=== PATIENT | male | born 1930 | race Caucasian/White ===

== ENCOUNTER 2016-08-22 13:27 | Inpatient (IN) | payer MEDICARE ==
[~2016-08-22] VITALS: Ht 182.9 cm; Wt 80.3 kg
[~2016-08-22 13:27] MED LIST: ALPR.25 PO
[2016-08-29] MEDS ORDERED: NORC5TAB PO (15:55)
[2016-09-03] MEDS ORDERED: RANI150C PO (11:49)
[2016-09-03] MEDS ORDERED: CYAN5SUB SL (11:49)
[2016-09-03] MEDS ORDERED: SODI1SOL8 RIGHT EYE (11:49)
[2016-09-03] MEDS ORDERED: TAMS5CAP PO (11:49)
[2016-09-03] MEDS ORDERED: HYDR-3516 PO ×2 (11:49)
[2016-09-03] MEDS ORDERED: NACL5%O RIGHT EYE (11:49)
[2016-09-03] MEDS ORDERED: METF500T PO (11:49)
[2016-09-03] MEDS ORDERED: ATOR10TA15 PO (11:49)
[2016-09-03] MEDS ORDERED: VITA100064 PO (11:49)
[2016-09-03] MEDS ORDERED: FOLI400T PO (11:49)
--- NOTE | 2016-09-03 17:39 | MH ---
cc: BERNABE LOVELACE M.D., ROHIT K. M.D. GRIMES, JEREMY R. MD REES, RYAN R. M.D. DATE OF ADMISSION 09/04/2016 ADMISSION DIAGNOSIS Lumbar degenerative disk disease and lumbar spinal stenosis. HISTORY OF PRESENT ILLNESS This is an 86-year-old male who presented to us for evaluation of low back pain. He states his pain started over a year ago after his right knee surgery. The pain radiates from the lower back down his right leg into the gonzalez [id number] with associated numbness and he is experiencing weakness in the right leg. He ambulates with a walker. He states his pain is 5/10. He has tried physical therapy at [facility] but discontinued this due to the increase in pain. His states he is very debilitated with his pain and his right leg weakness and it is wearing down on him. He has been falling a lot. He was seen by cardiology and he was cleared at an increased risk for surgery and he was instructed not to hold his aspirin. PAST MEDICAL HISTORY Significant for: 1. Coronary artery disease with a history of single bypass in 2001. 2. Bilateral arthroscopy on his knees by Dr. Llamas. 3. He has a history of diabetes mellitus. 4. Gastroesophageal reflux disease. 5. Benign prostatic hypertrophy. 6. Hypertension. 7. Hyperlipidemia. ALLERGIES HE HAS NO KNOWN DRUG ALLERGIES. MEDICATIONS He is on: 1. Metformin 500 mg four times a day. 2. Flomax 0.4 mg daily. 3. Aspirin 81 mg daily. 4. Ranitidine 150 mg b.i.d. 5. Atenolol 50 mg 1/2 tablet daily. 6. Alprazolam 0.25 mg p.r.n. anxiety. 7. Atorvastatin 10 mg daily. 8. Travatan 0.68658 one drop daily. 9. Vitamin D 500 mg daily. 10. Folic acid 40 mg daily. FAMILY HISTORY His mother is at 82 years old of heart disease. His father is at 56 years old of heart disease. A sister is at 100 years old with heart disease. Another sister is at 89 years old of heart disease. Brother who is at 84 years old of heart disease. SOCIAL HISTORY He is . He has three children. He does not smoke. He has not smoked in the past. REVIEW OF SYSTEMS CONSTITUTIONAL: He denies any fever or chills. EARS, NOSE, AND THROAT: No pharyngitis, exudate or bloody drainage from his nose. CARDIOVASCULAR: He denies any chest pain, palpitations. RESPIRATORY: No cough or shortness of breath. GENITOURINARY: No dysuria. Positive for urinary frequency. MUSCULOSKELETAL: Positive for low back pain and weakness in his legs. SKIN: No rashes or pruritus. NEUROLOGICAL: No difficulty with speech or memory. GASTROINTESTINAL: No nausea. No diarrhea or constipation. PSYCHIATRIC: No anxiety or depression symptoms. ENDOCRINE: No polyuria or polydipsia. HEMATOLOGIC: Positive for bruising tendencies but no bleeding tendencies. PHYSICAL EXAMINATION HEAD: Normocephalic, atraumatic. NECK: Supple. No carotid bruits heard on auscultation. LUNGS: Clear to auscultation bilaterally. HEART: Regular rate and rhythm. Normal S1-S2. ABDOMEN: Soft and nontender. Positive bowel sounds. SKIN: Reveals no cyanosis or erythema. MUSCULOSKELETAL: He has right iliopsoas and quadriceps weakness at 2/5. Dorsiflexion and plantar flexion weakness is 4-/5. Strength in his left leg is 4+/5. Strength in his upper extremities is 5/5. NEUROLOGICAL: Awake and alert, oriented. Cranial nerves II through XII appear grossly intact. Speech is fluent. Comprehension is good. He has decreased sensation in the right L3 and L4 dermatomes and to a lesser extent the S1 dermatome. IMAGING Data reviewed, reviewed an MRI of the lumbar spine from July 04, 2016 which revealed severe L3-L4 degenerative disc disease with near complete disc height collapse and endplate changes. There is also severe spinal stenosis of the L3-L4 and L4-L5 level from a combination of disc herniation as well as facet arthropathy. He has an extruded disc fragment herniated from the L3-L4 superiorly and inferiorly on the right side. IMPRESSION An 86-year-old male with a chronic history of low back pain along with a right L3 and L4 radiculopathy with associated significant weakness. Physical therapy aggravated his symptoms rather than helped his pain. He has severe L3-L4, L4-L5 spinal stenosis from disk herniation on the right side as well as facet and ligamentum flavum hypertrophy along with severe L3-L4 degenerative disk disease with disk height collapse and endplate changes. There is also bilateral facet arthropathy. PLAN Given the severity of symptoms as well as weakness in his right leg, we have recommended an L3-L4, L4-L5 decompressive laminectomy with microdiskectomy and a L3-L4 right transforaminal decompression with interbody fusion pedicle screw fixation. The procedure as well as the risks, benefits, alternatives and recovery time were explained in great detail with the patient. We have discussed the risks involved with surgery include but not limited to bleeding, infection, muscle weakness, voice hoarseness, difficulty swallowing, heart attack, stroke, blood clots, non fusion, scar tissue formation, among others. We have explained the procedure using spine models in the office and all of his questions were answered to his satisfaction. No guarantees were given to the results of surgery and it is possible that his pain may not improve or could even be worse after surgery. The patient states that he understands the procedure as well as the risks involved and he was therefore scheduled accordingly. Again we have also received cardiac clearance at an increased risk by his software quality manager Dr. Bernabe Lovelace MD. The patient is willing to accept the risks and he is therefore scheduled accordingly. DICTATED BY: Benjamin Sandoval PA-C MD SHIV Hogan/JUDE /3:17 PM /5:15 PM
[2016-09-04 05:40] VITALS: BP 138/63; PULSE 58; RESP 18; TEMP 98.8; O2SAT 98
[2016-09-04] MEDS ORDERED: SODIUM CHLORID 0.9% 500 ML IV SCH (06:15)
[2016-09-04] MEDS ORDERED: METOPROLOL TARTRATE 25 MG TAB PO PRN (06:15)
[2016-09-04] MEDS ORDERED: SODIUM CHLOR 0.9% 1000 ML INJ 1,000 ML IV SCH (06:15)
[2016-09-04] MEDS ORDERED: VANCOMYCIN HCL 1000 MG ON-CALL/NS 250 ML IV SCH ×2 (06:15)
[2016-09-04] MEDS ORDERED: INSULIN HUMAN REGULAR 1,000 UNITS/10 ML VIAL SQ PRN (06:15)
[2016-09-04] MEDS ORDERED: LACTATED RINGER'S 1000 ML IV SCH (06:15)
[2016-09-04] MEDS ORDERED: THROMBIN (TOPICAL) 5,000 UNIT VIAL ONE (06:56)
[2016-09-04] MEDS ORDERED: GELFOAM SIZE 100 ONE (06:57)
[2016-09-04] MEDS ORDERED: ACETAMINOPHEN 1000 MG/100 ML VIAL IV ONE (07:45)
[2016-09-04] MEDS ORDERED: KETAMINE HCL 500 MG/5 ML VIAL ONE (07:46)
[2016-09-04] MEDS ORDERED: DEXAMETHASONE SOD PHOS 4 MG/ML VIAL ONE ×2 (07:46→08:00)
[2016-09-04] MEDS ORDERED: fentaNYL CITRATE 250 MCG/5 ML AMP ONE (07:46)
[2016-09-04] MEDS ORDERED: MIDAZOLAM HCL 2 MG/2 ML VIAL ONE (07:46)
[2016-09-04] MEDS ORDERED: FAMOTIDINE 20 MG/2 ML VIAL ONE (07:46)
[2016-09-04] MEDS ORDERED: PHENYLEPH/NS 1000 MCG/10 ML SYR IV ONE (08:54)
[2016-09-04] MEDS ORDERED: ePHEDrine/NS 50 MG/5 ML SYR IV ONE (08:54)
[2016-09-04] MEDS ORDERED: ONDANSETRON HCL 4 MG/2 ML VIAL IV PUSH ONE (08:54)
[2016-09-04] MEDS ORDERED: LACTATED RINGER'S 1000 ML INJ 1,000 ML IV ONE (08:54)
[2016-09-04] MEDS ORDERED: PROPOFOL 200 MG/20 ML AMP IV ONE (08:54)
[2016-09-04] MEDS ORDERED: NEOSTIGMINE 3 MG/3 ML SYR IV ONE (08:54)
[2016-09-04] MEDS: BUPIVACAINE/EPINEPHRINE 0.5% 50 ML VIAL ONE ×2 (09:29→12:32)
[2016-09-04] MEDS: VANCOMYCIN HCL 1000 MG VIAL ONE ×2 (10:10→12:47)
--- NOTE | 2016-09-04 13:22 | PD.OP ---
cc: Randell Hale MD, Jeremy MD Operative Report Date of Surgery: Sep 04, 2016 Preoperative Diagnosis: Lumbar L3-4 and L4-5 spinal stenosis from facet and ligamentum flavum hypertrophy and disc herniation; L3-4 severe degenerative disc disease with associated spondylolisthesis; intractable low back pain with radiculopathy Postoperative Diagnosis: Same Procedure: L3-4 transforaminal interbody fusion; L3, L4 and L5 decompressive laminotomies with medial facetectomies and discectomy; L3-4 pedicle screw fixation; L3-4 interbody cage placement; microsurgical technique Anesthesia: Gen. endotracheal by Danuta Stanley Surgeon: Ralf Vargas M.D. Pin Drafting Machine Operator(s): Christine Wakefield Operation and Findings: Following initiation of general endotracheal anesthesia, the patient had a Fiore catheter placed along with sequential compression devices. A gram of vancomycin was administered intravenously and he was turned in a prone position on a Patrick frame, on a Nathan table, and all pressure points adequately padded. The lumbosacral region was then prepped with Chloraprep and sterilely draped with Ioban along the usual sterile draping. A midline skin incision was then made extending from the L3-5 levels after infiltrating the skin with 0.5% Marcaine with epinephrine solution extending down through the fascia. The muscle fibers were split using avascular fatty plane and detached from the underlying facets, transverse process and lateral portion of lamina on the right side and a self-retaining retractor used for exposure. Intraoperative fluoroscopy was also used for level of confirmation along with microscope magnification for further dissection. There was significant facet and ligamentum flavum hypertrophy noted at the L3-4 and L4-5 levels. Right L3-4 facet was resected with a drill bit along with the lamina and there was severe foraminal and lateral recess stenosis from hypertrophied ligamentum flavum and facet which were decompressed bilaterally through the usual lateral approach. There was significant disc height collapse along with disc protrusion also leading to the foraminal stenosis. Epidural hemostasis was achieved with bipolar cautery and Gelfoam with thrombin. Right L5 and 5 hemilaminotomy with medial facetectomy also taken and underlying hypertrophied ligamentum flavum resected to decompress the spinal canal and lateral recess. Identified a large disc herniation extending from the L3-4 inferiorly to the L4 level on the right side which was removed. Subsequently entered into the disc space at the L3=4 level with a #15 blade and cathy were used for discectomy. I then placed PEEK cage packed with local autograft bone and more local autograft bone was packed adjacent to the cage in interspace for added interbody fusion. With placement of the cage, I was able to distract the interspace and opened up the foramen further bilaterally. Subsequently in order to facilitate the fusion and provide stabilization, pedicle screw fixation was undertaken using [place] spine screws on entry point at the right L3-4 levels at the junction of the transverse process and facet. Subsequently using AP and lateral fluoroscopy tap and screw placement. The screws were then connected with a nora and locked in place with caps. The construct appeared very secure at this point. The area was then copiously irrigated with Vancomycin solution and powder. The retractors were removed and the bipolar cautery used for hemostasis. The muscle fascia was then approximated using 2-0 Vicryl interrupted stitches and then 3-0 Vicryl subcuticular stitches also placed in interrupted fashion. The final skin closure was completed with Mastisol and Steri-Strips. A sterile dressing was then applied. The patient then turned in supine position, extubated and taken to recovery room. There were no intraoperative complications. All sponge and needle counts were correct at the end of procedure. Estimated blood loss about 200 ml. Ralf Vargas MD Sep 04, 2016 13:22
[2016-09-04] MEDS ORDERED: RESP: ALBUTEROL 2.5 MG/3 ML NEB (PRN) NEB (13:30)
[2016-09-04] MEDS ORDERED: ALUMINUM/MAGNESIUM/SIMETH 30 ML CUP PO PRN (13:30)
[2016-09-04] MEDS ORDERED: cloNIDine HCL 0.1 MG TAB PO PRN (13:30)
[2016-09-04] MEDS ORDERED: BISACODYL 10 MG SUPP PR PRN (13:30)
[2016-09-04] MEDS ORDERED: MAGNESIUM SULFATE INJ 2 GM in SODIUM CHLORIDE 0.9% INJ 100 ML IV PRN (13:30)
[2016-09-04] MEDS ORDERED: DEXTROSE 50% IN WATER 50 ML VIAL(D50) IV PUSH PRN (13:30)
[2016-09-04] MEDS ORDERED: ONDANSETRON HCL 4 MG/2 ML VIAL IV PRN (13:30)
[2016-09-04] MEDS ORDERED: MENTHOL LOZENGE SUCK-ON PRN (13:30)
[2016-09-04] MEDS ORDERED: ACETAMINOPHEN 325 MG TAB PO PRN (13:30)
[2016-09-04] MEDS ORDERED: ZOLPIDEM TARTRATE 5 MG TAB PO PRN (13:30)
[2016-09-04] MEDS ORDERED: CALCIUM GLUCONATE INJ 1 GM in SODIUM CHLORIDE 0.9% INJ 100 ML IV PRN (13:30)
[2016-09-04] MEDS ORDERED: GLUCAGON 1 MG/ML VIAL OTHER PRN (13:30)
[2016-09-04] MEDS ORDERED: PROMETHAZINE INJ 25 MG/ML VIAL IM PRN (13:30)
[2016-09-04] MEDS ORDERED: POTASSIUM CHLOR 20 MEQ PREMIX 100 ML IV PRN (13:30)
[2016-09-04] MEDS ORDERED: SODIUM CHLORIDE 0.9% FLUSH 5 ML FLUSH IVF PRN (13:30)
[2016-09-04] MEDS ORDERED: DO NOT ADM ANY ANTICOAGULANT DRUGS XX PRN (13:45)
[2016-09-04] MEDS: NS + KCL 20 MEQ INJ 1,000 ML IV SCH (13:50)
[2016-09-04] MEDS ORDERED: *morphine SULFATE 8 MG/ML PERIprocedure ONLY ONE ×2 (14:11→15:40)
[2016-09-04 14:13] LABS: AUTOMATED NEUTROPHIL # 10.8 TH/MM3 (1.8-7.7); BASOPHIL % 0.2 % (0.0-2.0); EOSINOPHIL % 0.2 % (0.0-4.0); HEMO FLAGS DIFF FINAL; LYMPHOCYTE # 0.5 TH/MM3 (1.0-4.8); MEAN CELL VOLUME 83.4 FL (80.0-100.0); MEAN CORPUSCULAR HEMOGLOBIN 28.6 PG (27.0-34.0); MEAN CORPUSCULAR HGB CONC 34.3 % (32.0-36.0); MONO % 4.8 % (0.0-8.0); NEUT % 90.8 % (16.0-70.0); PLATELET COUNT 211 TH/MM3 (150-450); RED BLOOD COUNT 4.56 MIL/MM3 (4.50-5.90); RED CELL DISTRIBUTION WIDTH 13.8 % (11.6-17.2); WHITE BLOOD COUNT 11.9 TH/MM3 (4.0-11.0)
[2016-09-04 14:30] LABS: BICARBONATE 25.4 MEQ/L (21.0-32.0); MAGNESIUM 1.4 MG/DL (1.5-2.5); POTASSIUM 4.1 MEQ/L (3.5-5.1)
[2016-09-04] MEDS ORDERED: LORazepam 2 MG/ML VIAL ONE (14:32)
--- NOTE | 2016-09-04 14:36 | RADRPT ---
EXAM DATE/TIME: 09/04/2016 08:46 [facility] COMPARISON: No previous studies available for comparison. INDICATIONS : Lumbar spine L3-4 fusion. OR. MEDICAL HISTORY : None. SURGICAL HISTORY : None. ENCOUNTER: Initial ACUITY: 1 day PAIN SCORE: Non-responsive. LOCATION: Lumbar L3-4 FINDINGS: Transpeduncular screws are seen at the L3 and L4 levels labeled right. There is a stabilization zack ce at the L3-4 disc level. The hardware appears well placed. CONCLUSION: Good placement of the surgical hardware as described above. Gurinder Be MD on September 04, 2016 at 14:30 Board Certified Radiologist. This report was verified electronically.
[2016-09-04] MEDS ORDERED: LORazepam 2 MG/ML VIAL IV ONE (15:45)
[2016-09-04] MEDS: INSULIN NovoLIN REGULAR SUPPLEMENTAL SCALE SQ SCH ×2 (18:00→20:38)
[2016-09-04] MEDS: SODIUM CHLORIDE 5% OPHT SOLN 15 ML BTL RIGHT EYE SCH ×2 (18:00→20:37)
[2016-09-04] MEDS: SODIUM CHLORIDE 0.9% FLUSH 5 ML FLUSH IVF SCH (20:05)
[2016-09-04] MEDS: DOCUSATE SODIUM 100 MG CAP PO SCH (20:05)
[2016-09-04] MEDS: FAMOTIDINE 20 MG TAB PO SCH (20:05)
[2016-09-04 20:55] VITALS: BP 123/59; PULSE 76; RESP 20; TEMP 98.2; O2SAT 97
[2016-09-04 22:00] VITALS: PULSE 86
[2016-09-04] MEDS: SODIUM CHLORIDE 5% OPHT OINT 3.5 GM TUBE RIGHT EYE SCH (22:00)
[2016-09-05] VITALS (12 sets, daily range): BP systolic 109–138; BP diastolic 46–64; PULSE 74–91; RESP 17–47; TEMP 97.9–99.5; O2SAT 94–98
[2016-09-05] MEDS: NS + KCL 20 MEQ INJ 1,000 ML IV SCH (02:54)
[2016-09-05] MEDS: ACETAMINOPHEN/HYDROcodone 325 MG/10 MG TAB PO PRN ×4 (02:54→19:55)
[2016-09-05] MEDS: CYCLOBENZAPRINE HCL 10 MG TAB PO PRN ×2 (05:49→13:46)
[2016-09-05] MEDS: INSULIN NovoLIN REGULAR SUPPLEMENTAL SCALE SQ SCH ×4 (05:56→21:17)
[2016-09-05] MEDS: CYANOCOBALAMIN 1,000 MCG TAB PO SCH (08:03)
[2016-09-05] MEDS: ATORVASTATIN 10 MG TAB PO SCH (08:04)
[2016-09-05] MEDS: CHOLECALCIFEROL (VIT D3) 1000 UNIT TAB PO SCH (08:04)
[2016-09-05] MEDS: DOCUSATE SODIUM 100 MG CAP PO SCH ×2 (08:04→20:00)
[2016-09-05] MEDS: FAMOTIDINE 20 MG TAB PO SCH (08:04)
[2016-09-05] MEDS: FOLIC ACID 1 MG TAB PO SCH (08:04)
[2016-09-05] MEDS: TAMSULOSIN HCL 0.4 MG CAP PO SCH (08:04)
[2016-09-05] MEDS: SODIUM CHLORIDE 5% OPHT SOLN 15 ML BTL RIGHT EYE SCH ×4 (08:05→20:04)
[2016-09-05] MEDS: SODIUM CHLORIDE 0.9% FLUSH 5 ML FLUSH IVF SCH ×2 (08:05→20:04)
--- NOTE | 2016-09-05 08:54 | HHI.NSPN ---
(Benjamin Sandoval) History Chief Complaint: Incisional back pain. (Benjamin Sandoval) Interval History 09/05/16: Pt underwent L3, L4, L5 decompressive laminotomies with medial facetectomies and discectomy with L3/L4 TLIF with pedicle screw fixation on 09/04. Pt awake and alert. Complains of incisional back pain. No radiculopathy in LEs. Pt was up to have a BM with brace on and states he is sore. (Benjamin Sandoval) Review of Systems General: Negative for: fever, chills, insomnia Respiratory: Negative for: shortness of breath, cough, sputum Cardiovascular: Negative for: chest pain Gastrointestinal: Negative for: nausea, vomitting, diarrhea, constipation ( Benjamin Sandoval) Exam Results Vital Signs Date Time Temp Pulse Resp B/P Pulse Ox O2 Delivery O2 Flow Rate FiO2 09/05/16 06:00 80 09/05/16 04:00 98.4 17 127/59 94 09/04/16 21:52 Room Air 09/04/16 13:11 6 Intake and Output 09/04/16 09/04/16 09/05/16 08:00 16:00 00:00 Intake Total 1100 ml 980 ml Output Total 450 ml 650 ml Balance 650 ml 330 ml (Benjamin Sandoval) Physical Examination Resp: CTA bilaterally Heart: NSR no murmurs Abd: Soft positive bs Skin: No cyanosis or erythema Muscle: Moves LEs with weakness in right leg. Right iliopsoas strength is 2/5 left dorsiflexion strength is 3/5. Left leg is 4+/5 Neuro: Pt awake and alert. Follows commands. speech clear and appropriate. ( Benjamin Sandoval) Lab, Micro, Other Results Last Impressions Lumbar Spine X-Ray 09/04/16 0000 Signed Impressions: Service Date/Time: Sunday, September 04, 2016 08:46 - CONCLUSION: Good placement of the surgical hardware as described above. Gurinder Be MD Laboratory Tests Test 09/04/16 14:02 White Blood Count 11.9 TH/MM3 Red Blood Count 4.56 MIL/MM3 Hemoglobin 13.0 GM/DL Hematocrit 38.0 % Mean Corpuscular Volume 83.4 FL Mean Corpuscular Hemoglobin 28.6 PG Mean Corpuscular Hemoglobin 34.3 % Concent Red Cell Distribution Width 13.8 % Platelet Count 211 TH/MM3 Mean Platelet Volume 7.3 FL Neutrophils (%) (Auto) 90.8 % Lymphocytes (%) (Auto) 4.0 % Monocytes (%) (Auto) 4.8 % Eosinophils (%) (Auto) 0.2 % Basophils (%) (Auto) 0.2 % Neutrophils # (Auto) 10.8 TH/MM3 Lymphocytes # (Auto) 0.5 TH/MM3 Monocytes # (Auto) 0.6 TH/MM3 Eosinophils # (Auto) 0.0 TH/MM3 Basophils # (Auto) 0.0 TH/MM3 CBC Comment DIFF FINAL Differential Comment Sodium Level 139 MEQ/L Potassium Level 4.1 MEQ/L Chloride Level 103 MEQ/L Carbon Dioxide Level 25.4 MEQ/L Anion Gap 11 MEQ/L Blood Urea Nitrogen 15 MG/DL Creatinine 0.97 MG/DL Estimat Glomerular Filtration 73 ML/MIN Rate Random Glucose 239 MG/DL Calcium Level 8.4 MG/DL Magnesium Level 1.4 MG/DL 09/04/16 09/04/16 09/05/16 15:00 23:00 07:00 Intake Total 1100 ml 980 ml 1088 ml Output Total 450 ml 650 ml 600 ml Balance 650 ml 330 ml 488 ml Intake Oral 240 ml 240 ml IV Total 740 ml 848 ml Other 1100 ml Output Urine Total 250 ml 650 ml 600 ml Stool Total 0 ml 0 ml Other 200 ml # Bowel Movements 0 0 (Benjamin Sandoval) Medical Decision Making Impression and Plan A: 86 y/o M s/p L3, L4, L5 decompressive laminotomies with medial facetectomies and discectomy with L3/L4 TLIf with pedicle screw fixation. P: Continue with pain control continue with rehab efforts. (Benjamin Sandoval) Attending Statement The exam, history, and the medical decision-making described in the above note were completed with the assistance of the mid-level provider. I reviewed and agree with the findings presented. I attest that I had a [id number] encounter with the patient on the same day, and personally performed and documented my assessment and findings in the medical record. d/c vu and transfer to floor. SN[facility] placement. (Ralf Vargas MD) Benjamin Sandoval Sep 05, 2016 08:54 Ralf Vargas MD Sep 05, 2016 11:51
[2016-09-05] MEDS ORDERED: CYANOCOBALAMIN 2500 MCG SL SCH (09:00)
[2016-09-05] MEDS ORDERED: MORPHINE SULFATE 4 MG/ML INJ IV PUSH PRN (12:00)
[2016-09-05] MEDS ORDERED: LIDOCAINE HCL 2% 100 MG/5 ML SYRINGE ONE (22:03)
[2016-09-05] MEDS: SODIUM CHLORIDE 5% OPHT OINT 3.5 GM TUBE RIGHT EYE SCH (23:38)
[2016-09-06] VITALS: BP 136/63; PULSE 86; RESP 24; TEMP 98.4; O2SAT 95
[2016-09-06 00:58] VITALS: BP 114/58; RESP 21; TEMP 96.8; O2SAT 99
[2016-09-06] MEDS: ACETAMINOPHEN/HYDROcodone 325 MG/10 MG TAB PO PRN ×3 (01:49→11:53)
[2016-09-06] MEDS: INSULIN NovoLIN REGULAR SUPPLEMENTAL SCALE SQ SCH ×4 (05:17→20:44)
[2016-09-06] MEDS: ALPRAZolam 0.25 MG TAB PO PRN ×2 (05:40→20:45)
[2016-09-06] MEDS: CYCLOBENZAPRINE HCL 10 MG TAB PO PRN (06:24)
[2016-09-06 08:00] VITALS: BP 151/73; PULSE 128; RESP 19; TEMP 96.8; O2SAT 95
[2016-09-06] MEDS: ENOXAPARIN SODIUM 40 MG/0.4 ML SYRINGE SQ SCH (08:31)
[2016-09-06] MEDS: MAGNESIUM HYDROXIDE SUSP 30 ML CUP PO PRN (08:33)
[2016-09-06] MEDS: SODIUM CHLORIDE 0.9% FLUSH 5 ML FLUSH IVF SCH ×2 (08:33→20:44)
[2016-09-06] MEDS: CYANOCOBALAMIN 1,000 MCG TAB PO SCH (08:33)
[2016-09-06] MEDS: FOLIC ACID 1 MG TAB PO SCH (08:33)
[2016-09-06] MEDS: TAMSULOSIN HCL 0.4 MG CAP PO SCH (08:33)
[2016-09-06] MEDS: ATORVASTATIN 10 MG TAB PO SCH (08:33)
[2016-09-06] MEDS: FAMOTIDINE 20 MG TAB PO SCH (08:33)
[2016-09-06] MEDS: DOCUSATE SODIUM 100 MG CAP PO SCH ×2 (08:33→20:44)
[2016-09-06] MEDS: CHOLECALCIFEROL (VIT D3) 1000 UNIT TAB PO SCH (08:33)
[2016-09-06] MEDS: SODIUM CHLORIDE 5% OPHT SOLN 15 ML BTL RIGHT EYE SCH ×4 (08:40→21:00)
--- NOTE | 2016-09-06 10:33 | HHI.NSPN ---
(Benjamin Sandoval) History Chief Complaint: Incisional back pain. (Benjamin Sandoval) Interval History 09/05/16: Pt underwent L3, L4, L5 decompressive laminotomies with medial facetectomies and discectomy with L3/L4 TLIF with pedicle screw fixation on 09/04. Pt awake and alert. Complains of incisional back pain. No radiculopathy in LEs. Pt was up to have a BM with brace on and states he is sore. 09/06/16: Pt awake and alert. Complains of low back incisional pain and pain radiating down the anterior right leg. He has weakness in the right iliopsoas. (Benjamin Sandoval) Review of Systems General: Negative for: fever, chills, insomnia Respiratory: Negative for: shortness of breath, cough, sputum Cardiovascular: Negative for: chest pain Gastrointestinal: Negative for: nausea, vomitting, diarrhea, constipation ( Benjamin Sandoval) Exam Results Vital Signs Date Time Temp Pulse Resp B/P Pulse Ox O2 Delivery O2 Flow Rate FiO2 09/06/16 08:00 96.8 128 19 151/73 95 09/05/16 20:00 Room Air 09/04/16 13:11 6 Intake and Output 09/05/16 09/05/16 09/06/16 08:00 16:00 00:00 Intake Total 1088 ml 1087 ml 872 ml Output Total 600 ml 550 ml 650 ml Balance 488 ml 537 ml 222 ml (Benjamin Sandoval) Physical Examination Resp: CTA bilaterally Heart: NSR no murmurs Abd: Soft positive bs Skin: No cyanosis or erythema. New bandage applied. Muscle: Moves LEs with weakness in right leg. Right iliopsoas strength is 2/5 left dorsiflexion strength is 3/5. Left leg is 4+/5. Ambulating short distance with PT Neuro: Pt awake and alert. Follows commands. speech clear and appropriate. ( Benjamin Sandoval) Lab, Micro, Other Results 09/05/16 09/05/16 09/06/16 15:00 23:00 07:00 Intake Total 1087 ml 872 ml 150 ml Output Total 550 ml 650 ml 200 ml Balance 537 ml 222 ml -50 ml Intake Oral 650 ml 240 ml 150 ml IV Total 437 ml 632 ml Output Urine Total 550 ml 650 ml 200 ml Stool Total 0 ml # Bowel Movements 0 (Benjamin Sandoval) Medical Decision Making Impression and Plan A: 86 y/o M s/p L3, L4, L5 decompressive laminotomies with medial facetectomies and discectomy with L3/L4 TLIF with pedicle screw fixation. P: Continue with pain control continue with rehab efforts. Possibly rehab placement tomorrow if doing well. (Benjamin Sandoval) Attending Statement The exam, history, and the medical decision-making described in the above note were completed with the assistance of the mid-level provider. I reviewed and agree with the findings presented. I attest that I had a [id number] encounter with the patient on the same day, and personally performed and documented my assessment and findings in the medical record. Fiore replaced today for urinary retention and will remove tomorrow with bladder rest overnight. [facility] home placement tomorrow if stable. (Ralf Vargas MD) Benjamin Sandoval Sep 06, 2016 10:33 Ralf Vargas MD Sep 06, 2016 17:58
[2016-09-06 12:00] VITALS: BP 145/70; PULSE 115; RESP 19; TEMP 97; O2SAT 95
[2016-09-06] MEDS ORDERED: LACTULOSE SYRUP 20 GM/30 ML CUP PO PRN (15:45)
[2016-09-06 15:57] VITALS: BP 138/80; PULSE 115; RESP 18; TEMP 97.2; O2SAT 96
[2016-09-06 20:00] VITALS: BP 142/70; PULSE 97; RESP 16; TEMP 96.4; O2SAT 96
[2016-09-06] MEDS: SENNOSIDES 8.6 MG TAB PO SCH (20:44)
[2016-09-06] MEDS: SODIUM CHLORIDE 5% OPHT OINT 3.5 GM TUBE RIGHT EYE SCH (20:45)
[2016-09-07] VITALS: BP 146/67; PULSE 90; RESP 17; TEMP 97; O2SAT 97
[2016-09-07] MEDS: MAGNESIUM HYDROXIDE SUSP 30 ML CUP PO PRN (05:06)
[2016-09-07] MEDS: CYCLOBENZAPRINE HCL 10 MG TAB PO PRN ×2 (05:06→21:14)
[2016-09-07] MEDS: INSULIN NovoLIN REGULAR SUPPLEMENTAL SCALE SQ SCH ×4 (06:37→21:15)
[2016-09-07 08:00] VITALS: BP 125/67; PULSE 87; RESP 16; TEMP 97.7; O2SAT 95
[2016-09-07] MEDS: SODIUM CHLORIDE 5% OPHT SOLN 15 ML BTL RIGHT EYE SCH ×4 (09:00→21:32)
[2016-09-07] MEDS: SODIUM CHLORIDE 0.9% FLUSH 5 ML FLUSH IVF SCH ×2 (10:06→21:00)
[2016-09-07] MEDS: ENOXAPARIN SODIUM 40 MG/0.4 ML SYRINGE SQ SCH (10:06)
[2016-09-07] MEDS: FOLIC ACID 1 MG TAB PO SCH (10:07)
[2016-09-07] MEDS: CYANOCOBALAMIN 1,000 MCG TAB PO SCH (10:07)
[2016-09-07] MEDS: DOCUSATE SODIUM 100 MG CAP PO SCH ×2 (10:07→21:15)
[2016-09-07] MEDS: TAMSULOSIN HCL 0.4 MG CAP PO SCH (10:07)
[2016-09-07] MEDS: ACETAMINOPHEN/HYDROcodone 325 MG/10 MG TAB PO PRN ×2 (10:08→19:53)
[2016-09-07] MEDS: FAMOTIDINE 20 MG TAB PO SCH ×2 (10:08→21:15)
[2016-09-07] MEDS: ATORVASTATIN 10 MG TAB PO SCH (10:09)
[2016-09-07] MEDS: CHOLECALCIFEROL (VIT D3) 1000 UNIT TAB PO SCH (10:09)
[2016-09-07] MEDS ORDERED: HYDR-3535 PO (11:20)
[2016-09-07] MEDS ORDERED: CYCL1TAB29 PO (11:20)
[2016-09-07] MEDS: ALPRAZolam 0.25 MG TAB PO PRN ×2 (11:50→21:14)
[2016-09-07 12:00] VITALS: BP 135/72; PULSE 97; RESP 16; TEMP 96.7; O2SAT 93
--- NOTE | 2016-09-07 12:18 | HHI.NSPN ---
(Benjamin Sandoval) History Chief Complaint: Incisional back pain. (Benjamin Sandoval) Interval History 09/05/16: Pt underwent L3, L4, L5 decompressive laminotomies with medial facetectomies and discectomy with L3/L4 TLIF with pedicle screw fixation on 09/04. Pt awake and alert. Complains of incisional back pain. No radiculopathy in LEs. Pt was up to have a BM with brace on and states he is sore. 09/06/16: Pt awake and alert. Complains of low back incisional pain and pain radiating down the anterior right leg. He has weakness in the right iliopsoas. 09/07/16: Pt awake and alert. Incisional pain controlled with medication. Right iliopsoas weak. Pt had urinary retention yesterday had vu replaced and removed this morning and has not urinated yet. (Benjamin Sandoval) Review of Systems General: Negative for: fever, chills, insomnia Respiratory: Negative for: shortness of breath, cough, sputum Cardiovascular: Negative for: chest pain Gastrointestinal: Negative for: nausea, vomitting, diarrhea, constipation ( Benjamin Sandoval) Exam Results Vital Signs Date Time Temp Pulse Resp B/P Pulse Ox O2 Delivery O2 Flow Rate FiO2 09/07/16 08:00 97.7 87 16 125/67 95 09/06/16 20:10 Room Air 09/04/16 13:11 6 Intake and Output 09/06/16 09/06/16 09/07/16 08:00 16:00 00:00 Intake Total 390 ml 480 ml 240 ml Output Total 200 ml 800 ml 850 ml Balance 190 ml -320 ml -610 ml (Benjamin Sandoval) Physical Examination Resp: CTA bilaterally Heart: NSR no murmurs Abd: Soft positive bs Skin: No cyanosis or erythema. Muscle: Moves LEs with weakness in right leg. Right iliopsoas strength is 2/5 left dorsiflexion strength is 3/5. Left leg is 4+/5. Ambulating short distance with PT Neuro: Pt awake and alert. Follows commands. speech clear and appropriate. ( Benjamin Sandoval) Lab, Micro, Other Results 09/06/16 09/07/16 19:00 07:00 Intake Total 720 ml 360 ml Output Total 800 ml 1200 ml Balance -80 ml -840 ml Intake Oral 720 ml 360 ml Output Urine Total 800 ml 1200 ml Bladder Scan Volume Amount 760 ml # Voids 2 # Bowel Movements 0 0 (Benjamin Sandoval) Medical Decision Making Impression and Plan A: 86 y/o M s/p L3, L4, L5 decompressive laminotomies with medial facetectomies and discectomy with L3/L4 TLIF with pedicle screw fixation. P: Continue with pain control continue with rehab efforts. If not urinating again by timeframe will replace Vu and consult Urology. Pt is on Flomax. (Benjamin Sandoval) Attending Statement The exam, history, and the medical decision-making described in the above note were completed with the assistance of the mid-level provider. I reviewed and agree with the findings presented. I attest that I had a [id number] encounter with the patient on the same day, and personally performed and documented my assessment and findings in the medical record. (Ralf Vargas MD) Benjamin Sandoval Sep 07, 2016 12:18 Ralf Vargas MD Sep 07, 2016 15:20
[2016-09-07 16:00] VITALS: BP 103/55; PULSE 132; RESP 16; TEMP 97; O2SAT 94
[2016-09-07 20:00] VITALS: BP 120/72; PULSE 95; RESP 16; TEMP 98.1; O2SAT 99
[2016-09-07] MEDS: SENNOSIDES 8.6 MG TAB PO SCH (21:00)
[2016-09-07] MEDS: SODIUM CHLORIDE 5% OPHT OINT 3.5 GM TUBE RIGHT EYE SCH (21:16)
[2016-09-08] VITALS: BP 131/69; PULSE 86; RESP 20; TEMP 96.6; O2SAT 96
[2016-09-08] MEDS: ACETAMINOPHEN/HYDROcodone 325 MG/10 MG TAB PO PRN ×3 (04:18→20:16)
[2016-09-08] MEDS: INSULIN NovoLIN REGULAR SUPPLEMENTAL SCALE SQ SCH ×4 (06:28→20:31)
[2016-09-08 08:00] VITALS: BP 126/64; PULSE 80; RESP 16; TEMP 97; O2SAT 96
[2016-09-08] MEDS: CYANOCOBALAMIN 1,000 MCG TAB PO SCH (09:30)
[2016-09-08] MEDS: TAMSULOSIN HCL 0.4 MG CAP PO SCH (09:30)
[2016-09-08] MEDS: ATORVASTATIN 10 MG TAB PO SCH (09:30)
[2016-09-08] MEDS: DOCUSATE SODIUM 100 MG CAP PO SCH ×2 (09:31→20:16)
[2016-09-08] MEDS: FAMOTIDINE 20 MG TAB PO SCH ×2 (09:31→20:16)
[2016-09-08] MEDS: SODIUM CHLORIDE 0.9% FLUSH 5 ML FLUSH IVF SCH ×2 (09:31→20:16)
[2016-09-08] MEDS: CHOLECALCIFEROL (VIT D3) 1000 UNIT TAB PO SCH (09:31)
[2016-09-08] MEDS: FOLIC ACID 1 MG TAB PO SCH (09:31)
[2016-09-08] MEDS: ENOXAPARIN SODIUM 40 MG/0.4 ML SYRINGE SQ SCH (09:31)
[2016-09-08] MEDS: SODIUM CHLORIDE 5% OPHT SOLN 15 ML BTL RIGHT EYE SCH ×4 (09:31→20:19)
--- NOTE | 2016-09-08 11:55 | HHI.NSPN ---
History Chief Complaint: Incisional back pain. Interval History Participating in rehab. He has needed replacement of the vu twice. He is now on flomax. Rehab services are continued this week end Review of Systems General: Negative for: fever, chills, insomnia Respiratory: Negative for: shortness of breath, cough, sputum Cardiovascular: Negative for: chest pain, palpitations, orthopnea Gastrointestinal: Negative for: nausea, vomitting, diarrhea, constipation Exam Results Vital Signs Date Time Temp Pulse Resp B/P Pulse Ox O2 Delivery O2 Flow Rate FiO2 09/08/16 08:00 97.0 80 16 126/64 96 09/07/16 20:10 Room Air 09/04/16 13:11 6 Intake and Output 09/07/16 09/07/16 09/08/16 08:00 16:00 00:00 Intake Total 120 ml 480 ml 1214 ml Output Total 350 ml 740 ml Balance -230 ml 480 ml 474 ml Physical Examination Resp: CTA bilaterally Heart: NSR no murmurs Abd: Soft positive bs Skin: No cyanosis or erythema. Muscle: Moves LEs with weakness in right leg mostly from pain but 4/5 in the right hip flexor. Ambulating short distance with PT Neuro: Pt awake and alert. Follows commands. speech clear and appropriate. Medical Decision Making Impression and Plan Doing well after L3/4 TLIF, awaiting urology recommendations for next decath trial. Rehab bed is ready at [facility]. Rehab continued. Total Minutes: 10 Wes Garza Sep 08, 2016 11:55
[2016-09-08 12:00] VITALS: BP 135/92; PULSE 119; RESP 16; TEMP 97; O2SAT 96
[2016-09-08 20:00] VITALS: BP 127/69; PULSE 96; RESP 22; TEMP 95.5; O2SAT 96
[2016-09-08] MEDS: SENNOSIDES 8.6 MG TAB PO SCH (20:16)
[2016-09-08] MEDS: ALPRAZolam 0.25 MG TAB PO PRN (20:16)
[2016-09-08] MEDS: SODIUM CHLORIDE 5% OPHT OINT 3.5 GM TUBE RIGHT EYE SCH (20:32)
[2016-09-09] VITALS: BP 127/68; PULSE 87; RESP 18; TEMP 98; O2SAT 95
[2016-09-09] MEDS: INSULIN NovoLIN REGULAR SUPPLEMENTAL SCALE SQ SCH ×4 (06:05→21:00)
[2016-09-09 08:00] VITALS: BP 143/71; PULSE 94; RESP 16; TEMP 96.6; O2SAT 96
[2016-09-09] MEDS: FAMOTIDINE 20 MG TAB PO SCH ×2 (09:57→20:31)
[2016-09-09] MEDS: ENOXAPARIN SODIUM 40 MG/0.4 ML SYRINGE SQ SCH (09:57)
[2016-09-09] MEDS: DOCUSATE SODIUM 100 MG CAP PO SCH ×2 (09:57→20:31)
[2016-09-09] MEDS: TAMSULOSIN HCL 0.4 MG CAP PO SCH (09:57)
[2016-09-09] MEDS: CHOLECALCIFEROL (VIT D3) 1000 UNIT TAB PO SCH (09:57)
[2016-09-09] MEDS: FOLIC ACID 1 MG TAB PO SCH (09:57)
[2016-09-09] MEDS: SODIUM CHLORIDE 0.9% FLUSH 5 ML FLUSH IVF SCH ×2 (09:58→20:31)
[2016-09-09] MEDS: CYANOCOBALAMIN 1,000 MCG TAB PO SCH (09:58)
[2016-09-09] MEDS: ATORVASTATIN 10 MG TAB PO SCH (09:58)
[2016-09-09] MEDS: ACETAMINOPHEN/HYDROcodone 325 MG/10 MG TAB PO PRN ×3 (10:16→20:33)
[2016-09-09] MEDS: SODIUM CHLORIDE 5% OPHT SOLN 15 ML BTL RIGHT EYE SCH ×4 (10:18→20:32)
[2016-09-09 12:00] VITALS: BP 135/67; PULSE 99; RESP 16; TEMP 96.3; O2SAT 96
[2016-09-09 12:16] LABS: BACTERIA, URINE OCC /hpf; BLOOD, URINE SMALL (NEG); COMMENT (UR) CATH-CULTURE IND; CULTURE IF INDICATED CATH CULTURE IND; GLUCOSE,URINE NEG (NEG); HYALINE CAST, URINE 1 /lpf (RARE); KETONE, URINE NEG (NEG); MUCUS URINE FEW /lpf (OCC); NITRITE,URINE NEG (NEG); SQUAMOUS EPITHELIAL CELL URINE <1 /hpf (0-5); URINE COLOR YELLOW (YELLW/STRAW)
--- NOTE | 2016-09-09 13:23 | HHI.NSPN ---
History Chief Complaint: i want to urinate Interval History Participating in rehab. He has needed replacement of the vu twice. He is now on flomax. Rehab services are continued this week end 09/09/16 He is anxious about his urine output. His strength is now much improved. He is doing well neurologically. The urine cx is pending Review of Systems General: Negative for: fever, chills, insomnia Gastrointestinal: Negative for: nausea, vomitting, diarrhea, constipation Genitourinary: Positive for: urinary urgency Exam Results Vital Signs Date Time Temp Pulse Resp B/P Pulse Ox O2 Delivery O2 Flow Rate FiO2 09/09/16 08:00 96.6 94 16 143/71 96 09/07/16 20:10 Room Air Intake and Output 09/08/16 09/08/16 09/09/16 08:00 16:00 00:00 Intake Total 356 ml 480 ml 240 ml Output Total 300 ml 200 ml 125 ml Balance 56 ml 280 ml 115 ml Physical Examination Heart: NSR no murmurs Abd: Soft positive bs Skin: No cyanosis or erythema. Muscle: Moves LEs 5/5 in the hip flexors and quads when supine. Ambulating with PT Neuro: Pt awake and alert. Follows commands. speech clear and appropriate. Lab, Micro, Other Results Laboratory Tests Test 09/09/16 11:15 Urine Color YELLOW Urine Turbidity CLEAR Urine pH 6.0 Urine Specific [place] 1.014 Urine Protein TRACE mg/dL Urine Glucose (UA) NEG mg/dL Urine Ketones NEG mg/dL Urine Occult Blood SMALL Urine Nitrite NEG Urine Bilirubin NEG Urine Urobilinogen LESS THAN 2.0 MG/DL Urine Leukocyte Esterase MOD Urine RBC 46 /hpf Urine WBC 21 /hpf Urine WBC Clumps RARE Urine Squamous Epithelial <1 /hpf Cells Urine Bacteria OCC /hpf Urine Hyaline Casts 1 /lpf Urine Mucus FEW /lpf Microscopic Urinalysis Comment CATH-CULTURE IND Medical Decision Making Impression and Plan Doing well after L3/4 TLIF, awaiting urology recommendations for next decath trial. Rehab bed is ready at [facility]. Rehab continued. Total Minutes: 10 Wes Garza M Sep 09, 2016 13:23
[2016-09-09 16:00] VITALS: BP 136/72; PULSE 94; RESP 16; TEMP 97.5; O2SAT 96
--- NOTE | 2016-09-09 16:25 | PD.CONS ---
HPI Service Urology Consult Requested By Reason for Consult Retention Primary Care Physician Randell Hale MD Diagnosis: History of Present Illness 86yo male s/p lower back surgery now in urinary retention. Patient has failed multiple voiding trials thus far. He is currently on flomax. He reports difficulty voiding prior to this admission, Denies hematuria, dysuria, fevers, chills, N/V Review of Systems ROS Limitations: Clinical Condition Constitutional: DENIES: Fever Endocrine: DENIES: Polyuria Eyes: DENIES: Blurred vision Ears, nose, mouth, throat: DENIES: Hearing loss Cardiovascular: DENIES: Chest pain Gastrointestinal: DENIES: Abdominal pain Genitourinary: DENIES: Hematuria, Dysuria Musculoskeletal: DENIES: Joint pain Integumentary: DENIES: Rash Neurologic: DENIES: Headache Psychiatric: DENIES: Anxiety Past Family Social History Past Medical History HTN DM BPH CAD Past Surgical History CABG Arthroscopy Reported Medications Reported Meds & Active Scripts Active Lortab (Hydrocodone-Acetaminophen) 10-325 Mg Tab 1 Tab PO Q4H PRN Flexeril (Cyclobenzaprine HCl) 10 Mg Tab 10 Mg PO Q8H PRN Reported Atorvastatin (Atorvastatin Calcium) 10 Mg Tab 10 Mg PO DAILY Vitamin D (Cholecalciferol) 1,000 Unit Tab 1,000 Units PO DAILY B-12 (Cyanocobalamin) 2,500 Mcg Subl 2,500 Mcg SL DAILY Folic Acid 400 Mcg Tab 400 Mcg PO DAILY Hydrocodone-Acetaminophen 5-325 mg Tab 1 Tab PO Q6H PRN Metformin (Metformin HCl) 500 Mg Tab 500 Mg PO DAILY With a meal Sanjeev 128 Opth Oint (Sodium Chloride) 5 % Oint 1 Applic RIGHT EYE HS Ranitidine (Ranitidine HCl) 150 Mg Cap 150 Mg PO DAILY Sodium Chloride Opth Drops 5% Soln 1 Drop RIGHT EYE QID Flomax (Tamsulosin HCl) 0.4 Mg Cap 0.4 Mg PO DAILY Xanax (Alprazolam) 0.25 Mg Tab 0.25 Mg PO Q8H PRN Allergies: Coded Allergies: No Known Allergies (Verified , 09/04/16) Active Ordered Medications Current Medications Medications (Trade) Dose Ordered Sig/Luther Route Start Time Stop Time Status Last Admin (Xanax) 0.25 mg Q8H PRN PO 09/04/16 13:30 09/08/16 20:16 (Lipitor) 10 mg DAILY PO 09/05/16 09:00 09/09/16 09:58 (Vitamin D3) 1,000 units DAILY PO 09/05/16 09:00 09/09/16 09:57 (Folate) 0.5 mg DAILY PO 09/05/16 09:00 09/09/16 09:57 (Adsorbonac 5% Opth) 1 drop QID RIGHT EYE 09/04/16 18:00 09/09/16 10:18 (Sanjeev 128 5% Opth Oint) 1 applic DAILY@22 RIGHT EYE 09/04/16 22:00 09/08/16 20:32 (Flomax) 0.4 mg DAILY PO 09/05/16 09:00 09/09/16 09:57 (D50w (Vial) Inj) 25 ml UNSCH PRN IV PUSH 09/04/16 13:30 (Glucagon Inj) 1 mg UNSCH PRN OTHER 09/04/16 13:30 (NS Flush) 2 ml UNSCH PRN IVF 09/04/16 13:30 (NS Flush) 2 ml BID IVF 09/04/16 21:00 09/09/16 09:58 (Dulcolax Supp) 10 mg DAILY PRN ND 09/04/16 13:30 09/07/16 11:56 (Colace) 100 mg BID PO 09/04/16 21:00 09/09/16 09:57 (Milk Of Magnesia Liq) 30 ml DAILY PRN PO 09/04/16 13:30 09/07/16 05:06 (Mag-Al Plus Susp Liq) 30 ml Q6H PRN PO 09/04/16 13:30 09/07/16 05:06 (Zofran Inj) 4 mg Q6H PRN IV 09/04/16 13:30 Promethazine HCl 25 mg 25 mg Q4H PRN IM 09/04/16 13:30 Calcium Gluconate 1 gm/Sodium Chloride 110 ml @ 110 mls/hr UNSCH PRN IV 09/04/16 13:30 Potassium Chloride 100 ml @ 50 mls/hr UNSCH PRN IV 09/04/16 13:30 (Magnesium Sulfate Inj/NS Inj) 104 ml @ 100 mls/hr UNSCH PRN IV 09/04/16 13:30 09/04/16 16:30 ([place] 10-325 Mg) 1 tab Q4H PRN PO 09/04/16 13:30 09/09/16 10:16 ([place] 10-325 Mg) 2 tab Q4H PRN PO 09/04/16 13:30 09/06/16 11:53 (Flexeril) 10 mg Q8H PRN PO 09/04/16 13:30 09/07/16 21:14 (Catapres) 0.1 mg Q6H PRN PO 09/04/16 13:30 (Tylenol) 650 mg Q4H PRN PO 09/04/16 13:30 (Coker Ed) 1 lozenge UNSCH PRN SUCK-ON 09/04/16 13:30 (Ambien) 5 mg HS PRN PO 09/04/16 13:30 (Vitamin B12) 2,500 mcg DAILY PO 09/05/16 09:00 09/09/16 09:58 (Morphine Inj) 2 mg Q2HR PRN IV PUSH 09/05/16 12:00 (Lovenox Inj) 40 mg Q24H SQ 09/06/16 08:00 09/09/16 09:57 (Senokot) 17.2 mg HS PO 09/06/16 21:00 09/06/16 20:44 (Lactulose Liq) 30 ml DAILY PRN PO 09/06/16 15:45 09/07/16 10:06 (Pepcid) 20 mg BID PO 09/07/16 21:00 09/09/16 09:57 (Bactrim Ds 800-160 Mg) 1 tab Q12H PO 09/09/16 14:00 09/14/16 13:59 Family History Reviewed and noncontributory to present illness Social History No smoking history Physical Exam Vital Signs Vital Signs Date Time Temp Pulse Resp B/P Pulse Ox O2 Delivery O2 Flow Rate FiO2 09/09/16 08:00 96.6 94 16 143/71 96 09/09/16 00:00 98.0 87 18 127/68 95 09/08/16 20:00 95.5 96 22 127/69 96 Physical Exam GENERAL: This is a well-nourished, well-developed patient, in no apparent distress. SKIN: No rashes, ecchymoses or lesions. Cool and dry. HEAD: Atraumatic. Normocephalic. EYES: Extraocular motions intact. No scleral icterus. No injection or drainage. ENT: Nose without bleeding, purulent drainage Airway patent. NECK: Trachea midline. CARDIOVASCULAR: Normal pulses, well perfused extremities RESPIRATORY: nonlabored, equal chest rise GASTROINTESTINAL: Abdomen soft, non-tender, nondistended. : Clear yellwo urine with vu in place MUSCULOSKELETAL: Extremities without clubbing, cyanosis, or edema. NEUROLOGICAL: Awake and alert. Motor and sensory grossly within normal limits. Normal speech. Laboratory Laboratory Tests Test 09/09/16 11:15 Urine Color YELLOW Urine Turbidity CLEAR Urine pH 6.0 Urine Specific [place] 1.014 Urine Protein TRACE Urine Glucose (UA) NEG Urine Ketones NEG Urine Occult Blood SMALL Urine Nitrite NEG Urine Bilirubin NEG Urine Urobilinogen LESS THAN 2.0 Urine Leukocyte Esterase MOD Urine RBC 46 Urine WBC 21 Urine WBC Clumps RARE Urine Squamous Epithelial <1 Cells Urine Bacteria OCC Urine Hyaline Casts 1 Urine Mucus FEW Microscopic Urinalysis Comment CATH-CULTURE IND Date/Time Procedure Status Source Growth 09/09/16 11:15 Urine Culture Received Urine Catheterized Urine Pending Assessment and Plan Problem List: (1) Herniation of lumbar intervertebral disc with radiculopathy ICD Code: M51.16 Status: Acute (2) Low back pain ICD Code: M54.5 Status: Acute Assessment and Plan -As patient has failed voiding trials, recommend maintaining vu catheter in place and may be discharged to rehab with catheter -Patient may follow-up with Urology in clinic in 1 week for repeat voiding trial and further evaluation regarding his urinary retention -Continue flomax therapy -Please call with questions Godwin Allen MD Sep 09, 2016 16:25
[2016-09-09] MEDS: SULFAMETHOXAZOLE-TRIMETHOPRIM DS 800-160 MG TAB PO SCH (16:57)
[2016-09-09] MEDS: SENNOSIDES 8.6 MG TAB PO SCH (20:31)
[2016-09-09] MEDS: ALPRAZolam 0.25 MG TAB PO PRN (20:33)
[2016-09-09 20:39] VITALS: BP 140/71; PULSE 95; RESP 18; TEMP 95.6; O2SAT 95
[2016-09-09] MEDS: SODIUM CHLORIDE 5% OPHT OINT 3.5 GM TUBE RIGHT EYE SCH (21:33)
[2016-09-10] VITALS: BP 127/75; PULSE 97; RESP 18; TEMP 96; O2SAT 95
[2016-09-10] MEDS: SULFAMETHOXAZOLE-TRIMETHOPRIM DS 800-160 MG TAB PO SCH (01:27)
[2016-09-10 04:00] VITALS: BP 130/64; PULSE 99; RESP 19; TEMP 97.3; O2SAT 93
[2016-09-10] MEDS: INSULIN NovoLIN REGULAR SUPPLEMENTAL SCALE SQ SCH (06:36)
[2016-09-10 07:05] LABS: BASOPHIL % 0.1 % (0.0-2.0); EOSINOPHIL # 0.1 TH/MM3 (0-0.4); EOSINOPHIL % 0.9 % (0.0-4.0); HEMATOCRIT 35.5 % (39.0-51.0); HEMO FLAGS DIFF FINAL; LYMPH % 8.8 % (9.0-44.0); LYMPHOCYTE # 0.9 TH/MM3 (1.0-4.8); MEAN CELL VOLUME 84.1 FL (80.0-100.0); MEAN CORPUSCULAR HEMOGLOBIN 28.7 PG (27.0-34.0); MEAN CORPUSCULAR HGB CONC 34.1 % (32.0-36.0); MONO % 8.2 % (0.0-8.0); PLATELET COUNT 257 TH/MM3 (150-450); RED BLOOD COUNT 4.23 MIL/MM3 (4.50-5.90); RED CELL DISTRIBUTION WIDTH 13.4 % (11.6-17.2); WHITE BLOOD COUNT 9.7 TH/MM3 (4.0-11.0)
[2016-09-10 07:14] LABS: ALT (GPT) 20 U/L (12-78); ANION GAP 9 MEQ/L (5-15); AST (GOT) 8 U/L (15-37); BICARBONATE 27.4 MEQ/L (21.0-32.0); BLOOD UREA NITROGEN 20 MG/DL (7-18); CHLORIDE 100 MEQ/L (98-107); GLOMERULAR FILTRATION RATE 98 ML/MIN (>89); POTASSIUM 3.5 MEQ/L (3.5-5.1); SODIUM (NA) 136 MEQ/L (136-145)
[2016-09-10 07:15] LABS: ALKALINE PHOSPHATASE 70 U/L (45-117); TOTAL BILIRUBIN ADULT 0.5 MG/DL (0.2-1.0)
[2016-09-10 08:00] VITALS: BP 134/64; PULSE 94; RESP 18; TEMP 96; O2SAT 95
[2016-09-10] MEDS: SODIUM CHLORIDE 0.9% FLUSH 5 ML FLUSH IVF SCH (08:25)
[2016-09-10] MEDS: FOLIC ACID 1 MG TAB PO SCH (08:25)
[2016-09-10] MEDS: ENOXAPARIN SODIUM 40 MG/0.4 ML SYRINGE SQ SCH (08:25)
[2016-09-10] MEDS: CHOLECALCIFEROL (VIT D3) 1000 UNIT TAB PO SCH (08:26)
[2016-09-10] MEDS: ATORVASTATIN 10 MG TAB PO SCH (08:26)
[2016-09-10] MEDS: FAMOTIDINE 20 MG TAB PO SCH (08:26)
[2016-09-10] MEDS: CYANOCOBALAMIN 1,000 MCG TAB PO SCH (08:27)
[2016-09-10] MEDS: SODIUM CHLORIDE 5% OPHT SOLN 15 ML BTL RIGHT EYE SCH (08:28)
[2016-09-10] MEDS: TAMSULOSIN HCL 0.4 MG CAP PO SCH (08:28)
[2016-09-10] MEDS: DOCUSATE SODIUM 100 MG CAP PO SCH (08:28)
--- NOTE | 2016-09-10 09:50 | HHI.NSPN ---
History Chief Complaint: Weakness in right leg, awaiting rehab transfer. Interval History 09/05/16: Pt underwent L3, L4, L5 decompressive laminotomies with medial facetectomies and discectomy with L3/L4 TLIF with pedicle screw fixation on 09/04. Pt awake and alert. Complains of incisional back pain. No radiculopathy in LEs. Pt was up to have a BM with brace on and states he is sore. 09/06/16: Pt awake and alert. Complains of low back incisional pain and pain radiating down the anterior right leg. He has weakness in the right iliopsoas. 09/07/16: Pt awake and alert. Incisional pain controlled with medication. Right iliopsoas weak. Pt had urinary retention yesterday had vu replaced and removed this morning and has not urinated yet. 09/10/16: Pt awake and alert. Notes over weekend reviewed. Appreciate Urology evaluation. Incisional pain controlled. Vu in place. Pt ready for rehab placement. Review of Systems General: Negative for: fever, chills, insomnia Respiratory: Negative for: shortness of breath, cough, sputum Cardiovascular: Negative for: chest pain Gastrointestinal: Negative for: nausea, vomitting, diarrhea, constipation Exam Results Vital Signs Date Time Temp Pulse Resp B/P Pulse Ox O2 Delivery O2 Flow Rate FiO2 09/10/16 08:00 96.0 94 18 134/64 95 09/10/16 07:00 Room Air Intake and Output 09/09/16 09/09/16 09/10/16 08:00 16:00 00:00 Intake Total 150 ml 480 ml 120 ml Output Total 200 ml 250 ml 450 ml Balance -50 ml 230 ml -330 ml Physical Examination Heart: NSR no murmurs Abd: Soft positive bs Skin: No cyanosis or erythema. RN changed bandage this morning and reports incision clean and dry without signs of infection. Muscle: Moves LEs He has weakness in right iliopsoas 2/5. Ambulating with PT Neuro: Pt awake and alert. Follows commands. speech clear and appropriate. : Vu catheter in place with yellow urine in bag. ID: Pt on Bactrim for UTI. Culture pending this morning. Lab, Micro, Other Results Laboratory Tests Test 09/09/16 09/10/16 11:15 06:00 Urine Color YELLOW Urine Turbidity CLEAR Urine pH 6.0 Urine Specific [place] 1.014 Urine Protein TRACE mg/dL Urine Glucose (UA) NEG mg/dL Urine Ketones NEG mg/dL Urine Occult Blood SMALL Urine Nitrite NEG Urine Bilirubin NEG Urine Urobilinogen LESS THAN 2.0 MG/DL Urine Leukocyte Esterase MOD Urine RBC 46 /hpf Urine WBC 21 /hpf Urine WBC Clumps RARE Urine Squamous Epithelial <1 /hpf Cells Urine Bacteria OCC /hpf Urine Hyaline Casts 1 /lpf Urine Mucus FEW /lpf Microscopic Urinalysis Comment CATH-CULTURE IND White Blood Count 9.7 TH/MM3 Red Blood Count 4.23 MIL/MM3 Hemoglobin 12.1 GM/DL Hematocrit 35.5 % Mean Corpuscular Volume 84.1 FL Mean Corpuscular Hemoglobin 28.7 PG Mean Corpuscular Hemoglobin 34.1 % Concent Red Cell Distribution Width 13.4 % Platelet Count 257 TH/MM3 Mean Platelet Volume 7.4 FL Neutrophils (%) (Auto) 82.0 % Lymphocytes (%) (Auto) 8.8 % Monocytes (%) (Auto) 8.2 % Eosinophils (%) (Auto) 0.9 % Basophils (%) (Auto) 0.1 % Neutrophils # (Auto) 8.0 TH/MM3 Lymphocytes # (Auto) 0.9 TH/MM3 Monocytes # (Auto) 0.8 TH/MM3 Eosinophils # (Auto) 0.1 TH/MM3 Basophils # (Auto) 0.0 TH/MM3 CBC Comment DIFF FINAL Differential Comment Sodium Level 136 MEQ/L Potassium Level 3.5 MEQ/L Chloride Level 100 MEQ/L Carbon Dioxide Level 27.4 MEQ/L Anion Gap 9 MEQ/L Blood Urea Nitrogen 20 MG/DL Creatinine 0.75 MG/DL Estimat Glomerular Filtration 98 ML/MIN Rate Random Glucose 150 MG/DL Calcium Level 8.3 MG/DL Total Bilirubin 0.5 MG/DL Aspartate Amino Transf 8 U/L (AST/SGOT) Alanine Aminotransferase 20 U/L (ALT/SGPT) Alkaline Phosphatase 70 U/L Total Protein 5.7 GM/DL Albumin 2.4 GM/DL 09/09/16 09/09/16 09/10/16 15:00 23:00 07:00 Intake Total 480 ml 120 ml 120 ml Output Total 250 ml 450 ml 250 ml Balance 230 ml -330 ml -130 ml Intake Oral 480 ml 120 ml 120 ml Output Urine Total 250 ml 450 ml 250 ml # Bowel Movements 3 2 Medical Decision Making Impression and Plan A: 86 y/o M s/p L3, L4, L5 decompressive laminotomies with medial facetectomies and discectomy with L3/L4 TLIF with pedicle screw fixation. P: Continue with pain control Continue with rehab efforts. Continue with Flomax Continue with catheter and follow up with Urology in one week. Benjamin Sandoval Sep 10, 2016 9:49 am
--- NOTE | 2016-10-26 13:09 | HHI.DS ---
Discharge Summary Admission Date Sep 04, 2016 at 05:31 Discharge Date: Sep 10, 2016 Admitting Diagnosis (1) Facet arthropathy, lumbar Diagnosis: Principal ICD Code: M12.88 (2) Lumbar degenerative disc disease Diagnosis: Principal ICD Code: M51.36 (3) Low back pain Diagnosis: Principal ICD Code: M54.5 (4) Herniation of lumbar intervertebral disc with radiculopathy Diagnosis: Principal ICD Code: M51.16 Procedures L3/L4 transforaminal interbody fusion; L3, L4, and L5 decompressive laminotomies with medical facetectomies and discectomy; L3/L4 pedicle screw fixation with L3/L4 interbody cage placement by Dr. Vargas on 09/04/16. Brief History 86 y/o M who presented for an evaluation of his low back pain. He states his pain started over a year ago after his right knee surgery. The pain radiates from the lower back down his right leg into the gonzalez below the knee associated with numbness and he is experiencing weakness in that right leg. Pt ambulates with a walker. He rates his pain as 5/10. He has had a few sessions of physical therapy at [facility] but he discontinued attending due to the pain he was having. According to his he is very debilitated with this pain and right leg weakness and is wearing down on him. Imaging MRI of the lumbar spine from 07/04/16 was reviewed with the patient and his . He has a severe L3/L4 degenerative disc disease with near complete disc height collapse with endplate changes. There is also severe spinal stenosis at L3/L4 and L4/L5 from a combination of disc herniation as well as facet arthropathy. Extruded disc fragment herniated from L3/L4 superiorly and inferiorly on the right side. Hospital Course Pt underwent the above noted procedure performed by Dr. Vargas. There was no intraoperative complications. Postoperatively pt was admitted to the med/surg floor. PT was consulted. His Fiore catheter was discontinued but required replacement secondary to urinary retention. Pt was evaluated by urology and discharged to SNF with a indwelling Fiore catheter. Pt Condition on Discharge: Stable Discharge Disposition: Discharge to SNF Discharge Instructions DIET: Follow Instructions for: As Tolerated, No Restrictions ACTIVITIES You can perform: Shower Only-No Bath Activities to Avoid: Lifting/Bending, Prolonged Standing, Strenuous Activity, Bathing, Driving ADDITIONAL Activity Instructio: Lumbar brace on when out of bed Follow up Referrals: Appointment for Follow Up with Ralf Vargas MD SNF/FPC/HH with [facility] New Medications: Hydrocodone-Acetaminophen (Lortab) 10-325 Mg Tab 1 TAB PO Q4H PRN PAIN #60 Ref 0 TAB Continued Medications: Alprazolam (Xanax) 0.25 Mg Tab 0.25 MG PO Q8H PRN ANXIETY Ref 0 TAB Atorvastatin (Atorvastatin) 10 Mg Tab 10 MG PO DAILY Cholesterol Management #30 Ref 0 TAB Cholecalciferol (Vitamin D) 1,000 Unit Tab 1000 UNITS PO DAILY Nutritional Supplement #1 Ref 0 BOTTLE Cyanocobalamin (B-12) 2,500 Mcg Subl 2500 MCG SL DAILY Nutritional Supplement Ref 0 TAB.SL Folic Acid (Folic Acid) 400 Mcg Tab 400 MCG PO DAILY Nutritional Supplement Ref 0 TAB Ranitidine (Ranitidine) 150 Mg Cap 150 MG PO DAILY #30 Ref 0 CAP Sodium Chloride Opth Drops (Sodium Chloride Opth Drops) 5% Soln 1 DROP RIGHT EYE QID #1 Ref 0 BOTTLE Sodium Chloride Opth Oint (Sanjeev 128 Opth Oint) 5 % Oint 1 APPLIC RIGHT EYE HS #3.5 Ref 0 GM Tamsulosin (Flomax) 0.4 Mg Cap 0.4 MG PO DAILY Manage Prostate Problems #30 Ref 0 CAP Discontinued Medications: Hydrocodone-Acetaminophen (Hydrocodone-Acetaminophen) 5-325 mg Tab 1 TAB PO Q6H PRN PAIN Ref 0 TAB Benjamin Sandoval Oct 26, 2016 13:09
[2017-01-16] MEDS ORDERED: CYAN2500 PO (13:45)
== END 2016-09-10 11:05 | DRG 460 ==
LOC: HSDI 09-04 05:31 → N03A 09-04 20:52 → N06A 09-06 00:33
PROVIDERS: ADMIT Neurological Surgery; ATTEND Neurological Surgery
PROC: 0ST20ZZ Resection of Lumbar Vertebral Disc, Open Approach (ICD-10-PCS; 2016-09-04)
PROC: 01NB0ZZ Release Lumbar Nerve, Open Approach (ICD-10-PCS; 2016-09-04)
PROC: 0SG00A1 (ICD-10-PCS; principal; 2016-09-04 08:26)
PROC: 0T9B70Z Drainage of Bladder with Drainage Device, Via Natural or Artificial Opening (ICD-10-PCS; 2016-09-06)
DX: M51.16 Intervertebral disc disorders with radiculopathy, lumbar region (principal); E11.9 Type 2 diabetes mellitus without complications; I10 Essential (primary) hypertension; M48.06 Spinal stenosis, lumbar region; M43.16 Spondylolisthesis, lumbar region; E78.5 Hyperlipidemia, unspecified; K21.9 Gastro-esophageal reflux disease without esophagitis; I25.10 Atherosclerotic heart disease of native coronary artery without angina pectoris; G89.29 Other chronic pain; M12.88 Other specific arthropathies, not elsewhere classified, other specified site; N40.1 Benign prostatic hyperplasia with lower urinary tract symptoms; R33.8 Other retention of urine; Z79.84 Long term (current) use of oral hypoglycemic drugs; Z95.1 Presence of aortocoronary bypass graft
CPT/HCPCS: 72100; 76000; 80048; 80053; 81001; 82948; 83735; 85025; 86850; 86900; 86901; 86920; 87086; 94150; C1713; J0131; J0690; J1100; J1650; J2060; J2250; J2270; J2370; J2405; J2710; J3010; J3370; J3475; J3480; J7050; J7120; L0627

== ENCOUNTER → 2016-08-29 | Outpatient (CLI) | payer BC, MEDICARE ==
[~2016-08-29] MED LIST changes: +ALPR0.25 PO; +ASPI81 PO; +ASPI81CH CHEW; +ATEN-100 PO; +ATEN25TA PO; +ATOR10TA PO; +ATOR10TA15 PO; +BACT800T5 PO; +CYAN2500 PO; +CYAN5SUB SL; +CYCL1TAB29 PO; +FOLI400T PO; +FOLI400T30 PO; +GLUCTAB PO; +HYDR-3516 PO; +HYDR-3533 PO; +HYDR-3535 PO; +MACR100C2 PO; +METF500T PO; +MURO5SOL RIGHT EYE; +NACL5%O RIGHT EYE; +NORC5TAB PO; +RANI150C PO; +RANI150T PO; +SODI1SOL8 RIGHT EYE; +TAMS0.4C67 PO; +TAMS5CAP PO; +VITA100018 PO; +VITA100064 PO; +ZANT150T2 PO
[2016-08-29 13:18] LABS: AUTOMATED NEUTROPHIL # 7.1 TH/MM3 (1.8-7.7); BASOPHIL % 0.5 % (0.0-2.0); EOSINOPHIL % 0.5 % (0.0-4.0); HEMO FLAGS DIFF FINAL; LYMPH % 14.2 % (9.0-44.0); LYMPHOCYTE # 1.3 TH/MM3 (1.0-4.8); MEAN CELL VOLUME 84.7 FL (80.0-100.0); MEAN CORPUSCULAR HEMOGLOBIN 28.7 PG (27.0-34.0); MEAN CORPUSCULAR HGB CONC 33.9 % (32.0-36.0); MONO % 5.9 % (0.0-8.0); NEUT % 78.9 % (16.0-70.0); PLATELET COUNT 235 TH/MM3 (150-450); RED BLOOD COUNT 5.07 MIL/MM3 (4.50-5.90); RED CELL DISTRIBUTION WIDTH 13.5 % (11.6-17.2)
[2016-08-29 13:24] LABS: BLOOD, URINE NEG (NEG); COMMENT (UR) CULT NOT INDICATED; CULTURE IF INDICATED CULT NOT INDICATED; GLUCOSE,URINE NEG (NEG); KETONE, URINE TRACE mg/dL (NEG); MUCUS URINE FEW /lpf (OCC); NITRITE,URINE NEG (NEG); PH, URINE 5.5 (5.0-8.5); SQUAMOUS EPITHELIAL CELL URINE <1 /hpf (0-5); URINE COLOR YELLOW (YELLW/STRAW)
[2016-08-29 13:32] LABS: APTT (PATIENT) 27.1 SEC (24.3-30.1); PROTHROMBIN TIME - PATIENT 10.7 SEC (9.8-11.6)
[2016-08-29 13:39] LABS: ANION GAP 9 MEQ/L (5-15); AST (GOT) 10 U/L (15-37); BICARBONATE 27.7 MEQ/L (21.0-32.0); BLOOD UREA NITROGEN 16 MG/DL (7-18); CHLORIDE 104 MEQ/L (98-107); GLUCOSE,FASTING 94 MG/DL (74-99); POTASSIUM 4.5 MEQ/L (3.5-5.1); SODIUM (NA) 141 MEQ/L (136-145)
[2016-08-29 13:44] LABS: ALKALINE PHOSPHATASE 61 U/L (45-117); ALT (GPT) 17 U/L (12-78); GLOMERULAR FILTRATION RATE 73 ML/MIN (>89); TOTAL BILIRUBIN ADULT 0.6 MG/DL (0.2-1.0)
--- NOTE | 2016-08-30 10:53 | EKG ---
Date Performed: 08/29/2016 Time Performed: 12:25:04 PTAGE: 86 years EKG: Sinus rhythm NORMAL ECG PREVIOUS TRACING : 02/04/2011 05.07 Compared to prior tracing no significant change DOCTOR: Taz Nguyen Interpretating Date/Time 08/30/2016 10:52:12
== END ==
LOC: CPRE 11:56
PROVIDERS: ATTEND Neurological Surgery
DX: Z01.812 Encounter for preprocedural laboratory examination (principal); Z01.810 Encounter for preprocedural cardiovascular examination; M48.06 Spinal stenosis, lumbar region; M54.16 Radiculopathy, lumbar region; M51.36 Other intervertebral disc degeneration, lumbar region; M51.26 Other intervertebral disc displacement, lumbar region; Z79.01 Long term (current) use of anticoagulants
CPT/HCPCS: 36415; 80053; 81001; 85025; 85610; 85730; 93005

== ENCOUNTER 2016-10-10 01:13 | Emergency (ER) | payer MEDICARE ==
[~2016-10-10] VITALS: Ht 182.9 cm; Wt 71.0 kg
[~2016-10-10 01:13] MED LIST changes: -ALPR0.25 PO; -ASPI81 PO; -ASPI81CH CHEW; -ATEN-100 PO; -ATEN25TA PO; -ATOR10TA PO; -BACT800T5 PO; -CYAN2500 PO; -FOLI400T30 PO; -GLUCTAB PO; -HYDR-3516 PO; -HYDR-3533 PO; -MACR100C2 PO; -MURO5SOL RIGHT EYE; -NORC5TAB PO; -RANI150T PO; -TAMS0.4C67 PO; -VITA100018 PO; -ZANT150T2 PO
[2016-10-10 01:14] VITALS: BP 139/64; PULSE 63; RESP 18; TEMP 97.5; O2SAT 97
[2016-10-10 02:32] LABS: BACTERIA, URINE MANY /hpf; BLOOD, URINE MOD (NEG); COMMENT (UR) CULTURE INDICATED; CULTURE IF INDICATED CULTURE INDICATED; GLUCOSE,URINE NEG (NEG); KETONE, URINE NEG (NEG); MUCUS URINE FEW /lpf (OCC); URINE COLOR YELLOW (YELLW/STRAW)
[2016-10-10 02:33] LABS: NITRITE,URINE POS (NEG)
[2016-10-10] MEDS ORDERED: BACT800T5 PO (02:42)
[2016-10-10] MEDS ORDERED: SULFAMETHOXAZOLE-TRIMETHOPRIM DS 800-160 MG TAB PO ONE (02:45)
--- NOTE | 2016-10-10 03:28 | PD ---
HPI Chief Complaint: Bobbin Sorter Problem Time Seen by Provider: 01:44 Travel History International Travel<30 days: No Contact w/Intl Traveler<30days: No Traveled to known affect area: No History of Present Illness HPI The patient is an 86 year old male who presents to the [facility] emergency department with a history of having his Fiore catheter fall out of his urethra spontaneously at approximately 10:30 PM this evening. He denies pulling on the area. He reports that he's had it in for approximately a month. He reports that he has an appointment scheduled with his urologist for next week, Dr. Matthew. He reports that he's had a Fiore catheter in place related to urinary retention following back surgery September 04, 2016. The patient reports that he has been recovering well from the back surgery. He reports that he is done with his rehabilitation. The patient denies having any pain associated with the catheter coming out. He denies having any bleeding. The patient denies any recent fevers fever, cough, congestion, neck pain, chest pain, shortness of breath, abdominal pain, vomiting, diarrhea, or neurologic symptoms. [facility] Past Medical History Narrative Medical The patient's past medical history is significant for lumbar degenerative disc disease and lumbar spinal stenosis status post surgery last month done by Dr. Vargas, history of coronary artery disease with a history of single vessel bypass in 2001, history of diabetes mellitus, osteoarthritis, acid reflux, benign prostatic hypertrophy, hypertension, hyperlipidemia. Hx Anticoagulant Therapy: Yes (ASA) Arthritis: Yes Asthma: No Autoimmune Disease: No Heart Rhythm Problems: No Cancer: No Cardiac Catheterization: Yes Cardiovascular Problems: Yes (OPEN HEART SURGERY-2001) High Cholesterol: Yes Congestive Heart Failure: No COPD: No Cerebrovascular Accident: No Coronary Artery Disease: Yes Diabetes: Yes Patient Takes Glucophage: Yes Diminished Hearing: No Endocrine: Yes Genitourinary: Yes (FREQUENCY) Hepatitis: No Hiatal Hernia: No Hypertension: Yes Immune Disorder: No Kidney Stones: No Musculoskeletal: Yes (OA) Neurologic: Yes (BULGING DISC) Psychiatric: No Respiratory: No Migraines: No Seizures: No Thyroid Disease: No Tetanus Vaccination: > 5 Years Influenza Vaccination: Yes Past Surgical History Narrative Surgical The patient's past surgical history is significant for bilateral arthroscopy of his knees, coronary artery bypass grafting of a single vessel in 2001, history of lumbar spine surgery August 2016 Abdominal Surgery: No AICD: No Cardiac Surgery: Yes (CABG) Coronary Artery Bypass Graft: Yes (2001 1 VESSEL) Ear Surgery: No Endocrine Surgery: No Eye Surgery: Yes (CATARACTS) Genitourinary Surgery: Yes (hemorroidectomy) Joint Replacement: No Neurologic Surgery: Yes (laminectomies 09/04/16) Oral Surgery: Yes (TONSILLECTOMY) Pacemaker: No Thoracic Surgery: No Other Surgery: Yes Social History Alcohol Use: No Tobacco Use: No Substance Use: No Allergies-Medications (Allergen,Severity, Reaction): Coded Allergies: No Known Allergies (Verified , 10/10/16) Reported Meds & Prescriptions Reported Meds & Active Scripts Active Bactrim DS (Sulfamethoxazole-Trimethoprim) 800-160 Mg Tab 1 Tab PO BID Lortab (Hydrocodone-Acetaminophen) 10-325 Mg Tab 1 Tab PO Q4H PRN Reported Atorvastatin (Atorvastatin Calcium) 10 Mg Tab 10 Mg PO DAILY Vitamin D (Cholecalciferol) 1,000 Unit Tab 1,000 Units PO DAILY B-12 (Cyanocobalamin) 2,500 Mcg Subl 2,500 Mcg SL DAILY Folic Acid 400 Mcg Tab 400 Mcg PO DAILY Metformin (Metformin HCl) 500 Mg Tab 500 Mg PO DAILY With a meal Sanjeev 128 Opth Oint (Sodium Chloride) 5 % Oint 1 Applic RIGHT EYE HS Ranitidine (Ranitidine HCl) 150 Mg Cap 150 Mg PO DAILY Sodium Chloride Opth Drops 5% Soln 1 Drop RIGHT EYE QID Flomax (Tamsulosin HCl) 0.4 Mg Cap 0.4 Mg PO DAILY Xanax (Alprazolam) 0.25 Mg Tab 0.25 Mg PO Q8H PRN Review of Systems Except as stated in HPI: all other systems reviewed are Neg General / Constitutional: No: Fever Eyes: No: Visual changes HENT: No: Headaches Cardiovascular: No: Chest Pain or Discomfort Respiratory: No: Shortness of Breath Gastrointestinal: No: Nausea, Vomiting, Diarrhea, Abdominal Pain, Changes in Bowel Habits, Indigestion, Loss of Appetite Genitourinary: Positive: Other (Fiore catheter dislodgment), No: Urgency, Frequency, Dysuria, Flank Pain Musculoskeletal: No: Pain Skin: No Rash Neurologic: No: Weakness, Focal Abnormalities, Change in Mentation, Slurred Speech, Sensory Disturbance Psychiatric: No: Depression Endocrine: No: Polydipsia Hematologic/Lymphatic: No: Easy Bruising Physical Exam Narrative General: The patient is a well-developed well-nourished male in no acute distress. Head and Neck exam: Head is normocephalic atraumatic. Eyes: Pupils are equal round and reactive to light. Nose: Midline septum with pink mucous membranes Mouth: Dentition unremarkable. Moist mucus membranes. Posterior oropharynx is not erythematous. No tonsillar hypertrophy. Uvula midline. Airway patent. Neck: No palpable lymphadenopathy. No nuchal rigidity. No thyromegaly. Cardiovascular: Regular rate and rhythm without murmurs, gallops, or rubs. Lungs: Clear to auscultation bilaterally. No wheezes, rhonchi, or rales. Abdomen: Soft, without tenderness to palpation in all 4 quadrants of the abdomen. No guarding, rebound, or rigidity. Normal bowel sounds are audible. Extremities: No clubbing, cyanosis, or edema. 2+ pulses in all 4 extremities. Back: No spinous process tenderness to palpation. No costovertebral angle tenderness to palpation. Neurologic Exam: Grossly nonfocal. Skin Exam: No rash noted. Intact skin that is warm and dry. Male genital exam: The patient has no evidence of trauma on examination related to the catheter coming out. Data Data Last Documented VS Vital Signs Date Time Temp Pulse Resp B/P Pulse Ox O2 Delivery O2 Flow Rate FiO2 10/10/16 01:28 69 18 95 Room Air 10/10/16 01:14 97.5 139/64 Orders Urinalysis - C+S If Indicated (10/10/16 01:57) Urinary Catheter Insert/Apply (10/10/16 01:57) Urine Culture (10/10/16 02:18) Sulfamet-Trimeth Ds 800-160 Mg (Bactrim (10/10/16 02:45) Labs Laboratory Tests Test 10/10/16 02:18 Urine Color YELLOW Urine Turbidity CLOUDY Urine pH 6.0 Urine Specific [place] 1.021 Urine Protein 30 mg/dL Urine Glucose (UA) NEG mg/dL Urine Ketones NEG mg/dL Urine Occult Blood MOD Urine Nitrite POS Urine Bilirubin NEG Urine Urobilinogen LESS THAN 2.0 MG/DL Urine Leukocyte Esterase LARGE Urine RBC 76 /hpf Urine WBC /hpf Urine WBC Clumps MANY Urine Bacteria MANY /hpf Urine Mucus FEW /lpf Microscopic Urinalysis Comment CULTURE INDICATED MDM Medical Decision Making Medical Screen Exam Complete: Yes Emergency Medical Condition: Yes Medical Record Reviewed: Yes Differential Diagnosis Recurrent urinary retention, versus urinary tract infection, versus Fiore catheter dislodgment Narrative Course During the course of the patients emergency department visit, the patients history, examination, and differential diagnosis were reviewed with the patient. The patient had his Fiore catheter and examined at the bedside and it appears to be completely intact. The patient had his Fiore catheter replaced as he has not been able to urinate since the Fiore catheter came out. The patient had a urine sent for analysis. The patients laboratory studies were reviewed and remarkable for a urinalysis that revealed evidence of a urinary tract infection. No prior urine culture has been done that was positive at this facility, therefore the patient was given Bactrim DS 1 by mouth 1. Culture will be sent for this urine. The patient will be discharged home with a prescription for Bactrim DS. The patient is resting comfortably and feels better, is alert and in no distress. The patients results and examination findings were discussed with this patient. The repeat examination is unremarkable and benign. The history, exam, diagnostic testing, and current condition do not suggest any significant pathology to warrant further testing, continued ED treatment, admission, or surgical evaluation at this point. The vital signs have been stable. The patient does not have uncontrollable pain, intractable vomiting, or other significant symptoms. The patient's condition is stable and appropriate for discharge. The patient will pursue further outpatient evaluation with a primary care physician or other designated or consulting physician as indicated in the discharge instructions. The patient expressed understanding and was agreeable with this plan. Diagnosis Primary Impression: Dislodged Fiore catheter Qualified Code: T83.021A - Dislodged Fiore catheter, initial encounter Additional Impression: Urinary tract infection Qualified Code: T83.511A - Urinary tract infection associated with indwelling urethral catheter, initial encounter Referrals: Jonathan Matthew MD Patient Instructions: Catheter-associated Urinary Tract Infection (ED), General Instructions Med/Other Pt SpecificInfo: Prescription(s) given Scripts Sulfamethoxazole-Trimethoprim (Bactrim DS)800-160 Mg Tab1 Tab PO BID #20 TAB Ref 0 Prov:Bushra Nguyen MD 10/10/16 Disposition: DISCHARGE HOME Condition: Stable Bushra Nguyen MD Oct 10, 2016 03:28
[2017-01-16] MEDS ORDERED: CYAN2500 PO (13:45)
== END 2016-10-10 04:01 | disposition home or self-care (01) ==
LOC: NEPE 01:13
DX: T83.021A Displacement of indwelling urethral catheter, initial encounter (principal); T83.511A Infection and inflammatory reaction due to indwelling urethral catheter, initial encounter; N39.0 Urinary tract infection, site not specified; B96.89 Other specified bacterial agents as the cause of diseases classified elsewhere
CPT/HCPCS: 51702; 81001; 87077; 87086; 87186

== ENCOUNTER 2016-10-20 07:13 | Emergency (ER) | payer MEDICARE ==
[~2016-10-20] VITALS: Ht 182.9 cm; Wt 73.0 kg
[~2016-10-20 07:13] MED LIST changes: +BACT800T5 PO; -CYCL1TAB29 PO
[2016-10-20 07:33] VITALS: BP 161/70; PULSE 70; RESP 16; TEMP 97.9; O2SAT 98
[2016-10-20] MEDS ORDERED: ASPI81CH CHEW (07:48)
[2016-10-20] MEDS ORDERED: ATEN25TA PO (07:48)
[2016-10-20] MEDS ORDERED: METF500T PO (07:48)
--- NOTE | 2016-10-20 08:12 | PD ---
HPI Chief Complaint: Fall Time Seen by Provider: 07:46 Travel History International Travel<30 days: No Contact w/Intl Traveler<30days: No Traveled to known affect area: No History of Present Illness HPI 89-year-old male presents to the emergency department complaining of a trip and fall. Patient has a history of recent back surgery. He still little bit unsteady and walks with a walker. He states he had socks on which were slippery and he was adjusting his catheter and he fell 4 in his head. No LOC. No headache. The dorsal large hematoma that improved with putting ice on there. This happened a couple hours ago. He otherwise has been feeling well and healthy. History Past Medical History Narrative Medical Diabetes CAD, CABG 2001 Recent back surgery, aerogenic bladder Hypertension Hyperlipidemia Tetanus Vaccination: < 5 Years Social History Alcohol Use: No Tobacco Use: No Allergies-Medications (Allergen,Severity, Reaction): Coded Allergies: No Known Allergies (Verified , 10/20/16) Reported Meds & Prescriptions Reported Meds & Active Scripts Active Lortab (Hydrocodone-Acetaminophen) 10-325 Mg Tab 1 Tab PO Q4H PRN Reported Atenolol 25 Mg Tab 25 Mg PO DAILY Aspirin 81 Mg Chew 81 Mg CHEW DAILY Metformin (Metformin HCl) 500 Mg Tab 500 Mg PO TIDPC With meals Atorvastatin (Atorvastatin Calcium) 10 Mg Tab 10 Mg PO DAILY Vitamin D (Cholecalciferol) 1,000 Unit Tab 1,000 Units PO DAILY B-12 (Cyanocobalamin) 2,500 Mcg Subl 2,500 Mcg SL DAILY Folic Acid 400 Mcg Tab 400 Mcg PO DAILY Sanjeev 128 Opth Oint (Sodium Chloride) 5 % Oint 1 Applic RIGHT EYE HS Ranitidine (Ranitidine HCl) 150 Mg Cap 150 Mg PO DAILY Sodium Chloride Opth Drops 5% Soln 1 Drop RIGHT EYE QID Flomax (Tamsulosin HCl) 0.4 Mg Cap 0.4 Mg PO DAILY Xanax (Alprazolam) 0.25 Mg Tab 0.25 Mg PO Q8H PRN Review of Systems Except as stated in HPI: all other systems reviewed are Neg Physical Exam Narrative GENERAL: Well-appearing 86-year-old man, no acute distress. SKIN: Warm and dry. HEAD: Normocephalic. Moderate-sized contusion to the right forehead. EYES: Pupils equal and round. No scleral icterus. No injection or drainage. ENT: No nasal bleeding or discharge. Mucous membranes pink and moist. NECK: Trachea midline. No JVD. No midline tenderness. Painless range of motion. CARDIOVASCULAR: Regular rate and rhythm. No murmur appreciated. RESPIRATORY: No accessory muscle use. Clear to auscultation. Breath sounds equal bilaterally. GASTROINTESTINAL: Abdomen soft, non-tender, nondistended. Hepatic and splenic margins not palpable. MUSCULOSKELETAL: No obvious deformities. No clubbing. No cyanosis. No edema. NEUROLOGICAL: Awake and alert. No obvious cranial nerve deficits. Motor grossly within normal limits. Normal speech. Data Data Last Documented VS Vital Signs Date Time Temp Pulse Resp B/P Pulse Ox O2 Delivery O2 Flow Rate FiO2 10/20/16 07:33 97.9 70 16 161/[address] Brain W/O Iv Contrast(Rout) (10/20/16 ) [facility] Medical Decision Making Medical Screen Exam Complete: Yes Emergency Medical Condition: Yes Interpretation(s) CT head negative Differential Diagnosis Head injury, ICH, skull fracture, and neck injury, other occult internal injury Narrative Course Medical decision making 78-year-old man, trip and fall. Unsteady since his back surgery. Looks well. He's been doing physical therapy at home for gait training. He is not fallen otherwise since his surgery. Recommend CT, outpatient follow-up. Diagnosis Primary Impression: Head injury Qualified Code: S09.90XA - Head injury, initial encounter Additional Impression: Fall Qualified Code: W19.XXXA - Fall, initial encounter Additional Instructions: Follow-up with your primary doctor in the next 2-4 days. Return to the emergency department for any worsening headache, unsteadiness, confusion, or any other new or worsening symptoms. Disposition: 01 DISCHARGE HOME Condition: Stable Dickson Saxena MD Oct 20, 2016 08:12
--- NOTE | 2016-10-20 08:50 | RADRPT ---
EXAM DATE/TIME: 10/20/2016 08:33 [place] COMPARISON: CT BRAIN W/O CONTRAST, February 22, 2015, 16:29. INDICATIONS : Trauma; fall. RADIATION DOSE: 44.97 CTDIvol (mGy) MEDICAL HISTORY : Hypertension. SURGICAL HISTORY : Tonsillectomy. ENCOUNTER: Initial ACUITY: 1 day PAIN SCALE: 4/10 LOCATION: cranial TECHNIQUE: Multiple contiguous axial images were obtained of the head. Using automated exposure control and adj ustment of the mA and/or kV according to patient size, radiation dose was kept as low as reasonably a chievable to obtain optimal diagnostic quality images. FINDINGS: CEREBRUM: There is mild cerebral atrophy. Ventricles are normal in size. No evidence of midline shift, mass le yudelka, hemorrhage or acute infarction. No extra-axial fluid collections are seen. POSTERIOR FOSSA: The cerebellum and brainstem demonstrate no abnormality. The 4th ventricle is midline. The cerebell opontine angle is unremarkable. EXTRACRANIAL: There is mild right frontal scalp soft tissue swelling. Visualized sinuses are clear. SKULL: The calvaria is intact. No evidence of skull fracture. CONCLUSION: Mild right frontal scalp soft tissue swelling. No fracture or acute intracranial abnormality is ident ified. Gurinder Michele MD on October 20, 2016 at 8:46 Board Certified Radiologist. This report was verified electronically.
[2017-01-16] MEDS ORDERED: CYAN2500 PO (13:45)
== END 2016-10-20 09:38 | disposition home or self-care (01) ==
LOC: NEPE 07:13
DX: S00.83XA Contusion of other part of head, initial encounter (principal); W01.0XXA Fall on same level from slipping, tripping and stumbling without subsequent striking against object, initial encounter; Y93.89 Activity, other specified; Y92.9 Unspecified place or not applicable; E78.5 Hyperlipidemia, unspecified; I10 Essential (primary) hypertension; E11.9 Type 2 diabetes mellitus without complications; I25.10 Atherosclerotic heart disease of native coronary artery without angina pectoris; Z95.1 Presence of aortocoronary bypass graft
CPT/HCPCS: 70450

== ENCOUNTER 2016-12-24 17:43 | Emergency (ER) | payer MEDICARE ==
[~2016-12-24] VITALS: Ht 182.9 cm; Wt 75.0 kg
[~2016-12-24 17:43] MED LIST changes: +ASPI81CH CHEW; +ATEN25TA PO; -BACT800T5 PO
[2016-12-24 17:44] VITALS: BP 203/83; PULSE 89; RESP 14; TEMP 97.9; O2SAT 98
--- NOTE | 2016-12-24 18:21 | PD ---
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 The patient states that he stepped on the catheter bag, pulling his Fiore out of place. Balloon remained inflated during this process. He did have a little bit of bleeding, however he states this has resolved. States that he has had a Fiore catheter since August of this year after having back surgery, after which he was unable to urinate. Patient states his urologist is Dr. Matthew. [facility] Past Medical History Hx Anticoagulant Therapy: Yes (ASA) Arthritis: Yes Asthma: No Autoimmune Disease: No Heart Rhythm Problems: No Cancer: No Cardiac Catheterization: Yes Cardiovascular Problems: Yes (Low BP) High Cholesterol: Yes Congestive Heart Failure: No COPD: No Cerebrovascular Accident: No Coronary Artery Disease: Yes Diabetes: Yes (Type 2 ) Diminished Hearing: No Endocrine: Yes Genitourinary: Yes (FREQUENCY) Hepatitis: No Hiatal Hernia: No Hypertension: Yes Immune Disorder: No Kidney Stones: No Musculoskeletal: Yes (OA) Neurologic: Yes (BULGING DISC) Psychiatric: No Respiratory: No Migraines: No Seizures: No Thyroid Disease: No Past Surgical History Abdominal Surgery: No AICD: No Cardiac Surgery: Yes (CABG) Coronary Artery Bypass Graft: Yes (2001 1 VESSEL) Ear Surgery: No Endocrine Surgery: No Eye Surgery: Yes (CATARACTS) Genitourinary Surgery: Yes (hemorroidectomy) Joint Replacement: No Neurologic Surgery: Yes (laminectomies 09/04/16) Oral Surgery: Yes (TONSILLECTOMY) Pacemaker: No Thoracic Surgery: No Other Surgery: Yes Social History Alcohol Use: No Tobacco Use: No Substance Use: No Allergies-Medications (Allergen,Severity, Reaction): Coded Allergies: No Known Allergies (Verified , 12/24/16) Reported Meds & Prescriptions Reported Meds & Active Scripts Active Lortab (Hydrocodone-Acetaminophen) 10-325 Mg Tab 1 Tab PO Q4H PRN Reported Atenolol 25 Mg Tab 25 Mg PO DAILY Aspirin 81 Mg Chew 81 Mg CHEW DAILY Metformin (Metformin HCl) 500 Mg Tab 500 Mg PO TIDPC With meals Atorvastatin (Atorvastatin Calcium) 10 Mg Tab 10 Mg PO DAILY Vitamin D (Cholecalciferol) 1,000 Unit Tab 1,000 Units PO DAILY B-12 (Cyanocobalamin) 2,500 Mcg Subl 2,500 Mcg SL DAILY Folic Acid 400 Mcg Tab 400 Mcg PO DAILY Sanjeev 128 Opth Oint (Sodium Chloride) 5 % Oint 1 Applic RIGHT EYE HS Ranitidine (Ranitidine HCl) 150 Mg Cap 150 Mg PO DAILY Sodium Chloride Opth Drops 5% Soln 1 Drop RIGHT EYE QID Flomax (Tamsulosin HCl) 0.4 Mg Cap 0.4 Mg PO DAILY Xanax (Alprazolam) 0.25 Mg Tab 0.25 Mg PO Q8H PRN Review of Systems Except as stated in HPI: all other systems reviewed are Neg Physical Exam Narrative GENERAL: Well-developed, well-nourished, comfortable, no acute distress. SKIN: Focused skin assessment warm/dry. CARDIOVASCULAR: Regular rate and rhythm. RESPIRATORY: No accessory muscle use. Clear to auscultation. Breath sounds equal bilaterally. GASTROINTESTINAL: Abdomen soft, non-tender, nondistended. : Normal external genitalia with dried blood at the meatus. NEUROLOGICAL: Awake and alert. No obvious cranial nerve deficits. Motor grossly within normal limits. Normal speech. PSYCHIATRIC: Appropriate mood and affect; insight and judgment normal. Data Data Last Documented VS Vital Signs Date Time Temp Pulse Resp B/P Pulse Ox O2 Delivery O2 Flow Rate FiO2 12/24/16 17:44 97.9 89 14 203/83 98 Orders Lidocaine 2% Jelly (Xylocaine 2% Jelly) (12/24/16 18:30) Urinary Catheter Insert/Apply (12/24/16 18:19) [facility] Medical Decision Making Medical Screen Exam Complete: Yes Emergency Medical Condition: Yes Differential Diagnosis Dislodged Fiore, urethral injury, neurogenic bladder Narrative Course Fiore placed by my nurse with a few small blood clots and reddish tinged urine. Patient is stable for discharge home with outpatient follow-up with his urologist in the next 1-2 days. He was informed on when to return to the emergency department. He verbalizes understanding and agreement with plan. Diagnosis Primary Impression: Dislodged Fiore catheter Qualified Code: T83.021A - Dislodged Fiore catheter, initial encounter Referrals: Urologist 1 day Additional Instructions: Follow-up with your urologist in the next 1-2 days. Return to the emergency department for worsening symptoms or any other concerns as discussed. Disposition: 01 DISCHARGE HOME Condition: Stable Jaret Plascencia MD December 24, 2016 18:21
[2016-12-24] MEDS ORDERED: LIDOCAINE 2% JELLY 30 ML TUBE TOPICAL ONE (18:30)
[2016-12-24 19:25] VITALS: BP 169/75
[2017-01-16] MEDS ORDERED: CYAN2500 PO (13:45)
== END 2016-12-24 19:56 | disposition home or self-care (01) ==
LOC: NEPD 17:43
DX: T83.021A Displacement of indwelling urethral catheter, initial encounter (principal)
CPT/HCPCS: 51702

== ENCOUNTER 2016-12-29 16:58 | Emergency (ER) | payer MEDICARE ==
[~2016-12-29] VITALS: Ht 182.9 cm; Wt 75.0 kg
[2016-12-29] MEDS ORDERED: MACR100C2 PO (18:53)
--- NOTE | 2016-12-29 18:53 | PD ---
HPI Chief Complaint: Complaint Time Seen by Provider: 18:17 Travel History International Travel<30 days: No Contact w/Intl Traveler<30days: No Traveled to known affect area: No History of Present Illness HPI An 86-year-old male who has a chronic indwelling Vu ever since he had back surgery. Who presents to the emergency department having noticed blood in his Vu catheter about 3 hours ago and not having any urine output since then. He feels like he has to urinate but he can't, constant, moderate severity, with no associated fevers or chills. One week ago he had an episode where his Vu catheter dislodged and had to be replaced. PFSH Past Medical History Hx Anticoagulant Therapy: Yes (ASA) Arthritis: Yes Asthma: No Autoimmune Disease: No Heart Rhythm Problems: No Cancer: No Cardiac Catheterization: Yes Cardiovascular Problems: Yes (Low BP) High Cholesterol: Yes Congestive Heart Failure: No COPD: No Cerebrovascular Accident: No Coronary Artery Disease: Yes Diabetes: Yes Patient Takes Glucophage: No Diminished Hearing: Yes Endocrine: Yes Genitourinary: Yes (FREQUENCY) Hepatitis: No Hiatal Hernia: No Hypertension: Yes Immune Disorder: No Kidney Stones: No Medical other: Yes (NOT REVIEWED ON THIS VISIT) Musculoskeletal: Yes (OA) Neurologic: Yes (BULGING DISC) Psychiatric: No Respiratory: No Migraines: No Seizures: No Thyroid Disease: No ?: Not Past Surgical History Abdominal Surgery: No AICD: No Cardiac Surgery: Yes (CABG) Coronary Artery Bypass Graft: Yes (2001 1 VESSEL) Ear Surgery: No Endocrine Surgery: No Eye Surgery: Yes (CATARACTS) Genitourinary Surgery: Yes (has ongoing use of vu catheter) Joint Replacement: No Neurologic Surgery: Yes (laminectomies 09/04/16) Oral Surgery: Yes (TONSILLECTOMY) Pacemaker: No Thoracic Surgery: No Other Surgery: Yes Social History Alcohol Use: Yes (seldom) Tobacco Use: No Substance Use: No Allergies-Medications (Allergen,Severity, Reaction): Coded Allergies: No Known Allergies (Verified , 12/26/16) Reported Meds & Prescriptions Reported Meds & Active Scripts Active Macrobid (Nitrofurantoin Monoh/Nitrofur Macro) 100 Mg Cap 100 Mg PO BID 7 Days Reported Atenolol 25 Mg Tab 25 Mg PO DAILY Aspirin 81 Mg Chew 81 Mg CHEW DAILY Metformin (Metformin HCl) 500 Mg Tab 500 Mg PO TIDPC With meals Atorvastatin (Atorvastatin Calcium) 10 Mg Tab 10 Mg PO DAILY Vitamin D (Cholecalciferol) 1,000 Unit Tab 1,000 Units PO DAILY B-12 (Cyanocobalamin) 2,500 Mcg Subl 2,500 Mcg SL DAILY Folic Acid 400 Mcg Tab 400 Mcg PO DAILY Sanjeev 128 Opth Oint (Sodium Chloride) 5 % Oint 1 Applic RIGHT EYE HS Ranitidine (Ranitidine HCl) 150 Mg Cap 150 Mg PO DAILY Flomax (Tamsulosin HCl) 0.4 Mg Cap 0.4 Mg PO DAILY Xanax (Alprazolam) 0.25 Mg Tab 0.25 Mg PO Q8H PRN Review of Systems Except as stated in HPI: all other systems reviewed are Neg Physical Exam Narrative GENERAL:Well appearing, no acute distress SKIN: Focused skin assessment warm and dry. HEAD: Atraumatic. Normocephalic. EYES: Pupils equal and round. No injection or drainage. ENT: Moist mucous membranes NECK: Trachea midline. CARDIOVASCULAR: Regular rate and rhythm. No murmur appreciated. RESPIRATORY: Clear to auscultation. Breath sounds equal bilaterally. GASTROINTESTINAL: Abdomen soft, non-tender, nondistended. : Vu catheter bag some blood, minimal urine, not secured to the patient's leg MUSCULOSKELETAL: No obvious deformities. NEUROLOGICAL: Awake and alert. No obvious cranial nerve deficits. Moving all extremities. PSYCHIATRIC: Appropriate mood and affect; insight and judgment normal. Data Data Orders Urinalysis - C+S If Indicated (12/29/16 18:51) Urine Culture (12/29/16 18:50) Labs Laboratory Tests Test 12/29/16 18:50 Urine Color YELLOW Urine Turbidity HAZY Urine pH 7.0 Urine Specific [place] 1.015 Urine Protein 30 mg/dL Urine Glucose (UA) NEG mg/dL Urine Ketones NEG mg/dL Urine Occult Blood MOD Urine Nitrite NEG Urine Bilirubin NEG Urine Urobilinogen 2.0 MG/DL Urine Leukocyte Esterase LARGE Urine RBC 61 /hpf Urine WBC 32 /hpf Urine Mucus FEW /lpf Microscopic Urinalysis Comment CATH-CULTURE IND MDM Medical Decision Making Medical Screen Exam Complete: Yes Emergency Medical Condition: Yes Interpretation(s) Urinalysis: Blood possible infection Differential Diagnosis Traumatic Vu catheter complication, obstruction, urinary tract infection Narrative Course This is an 86-year-old male who presents the emergency department with blood in his Vu catheter bag with inability to urinate. Here in the emergency department we attempted to flush the catheter before any able to. A new catheter was placed and we were able to obtain clear urine. Urinalysis demonstrates some blood and some white blood cells which could possibly reflect an infection. I suspect that the patient dislodged his Vu catheter. He was here for the same problem 1 week ago. He is not wearing a leg bag and the catheter is not secured to his inner thigh so I suspect it was pulled on and displaced. Patient was empirically put on antibiotics and will follow up with urology. Diagnosis Primary Impression: Urinary tract infection Qualified Code: T83.511A - Urinary tract infection associated with indwelling urethral catheter, initial encounter Additional Impression: Complication, blocked Vu catheter Qualified Code: T83.091A - Complication, blocked Vu catheter, initial encounter Patient Instructions: General Instructions Additional Instructions: If you develop fever, persistent vomiting, back pain, or inability to eat return to the emergency department as your urine infection may have progressed to a kidney infection. Complete your antibiotics as prescribed. Stay well hydrated with Gatorade or water. Followup with your primary care physician in 2-3 days if your symptoms have not resolved. Med/Other Pt SpecificInfo: Prescription(s) given Scripts Nitrofurantoin Monohydrate Macrocrystals (Macrobid)100 Mg [id number] Mg PO BID 7 Days Prov:Alexandria Barba MD 12/29/16 Disposition: 01 DISCHARGE HOME Condition: Stable Alexandria Barba MD December 29, 2016 18:53
[2016-12-29 19:25] LABS: BLOOD, URINE MOD (NEG); COMMENT (UR) CATH-CULTURE IND; CULTURE IF INDICATED CATH CULTURE IND; GLUCOSE,URINE NEG (NEG); KETONE, URINE NEG (NEG); MUCUS URINE FEW /lpf (OCC); NITRITE,URINE NEG (NEG); URINE COLOR YELLOW (YELLW/STRAW)
[2017-01-16] MEDS ORDERED: CYAN2500 PO (13:45)
== END 2016-12-29 19:04 | disposition home or self-care (01) ==
LOC: NEPD 16:58
DX: N39.0 Urinary tract infection, site not specified (principal); T83.091A Other mechanical complication of indwelling urethral catheter, initial encounter; B96.89 Other specified bacterial agents as the cause of diseases classified elsewhere; I10 Essential (primary) hypertension; I25.10 Atherosclerotic heart disease of native coronary artery without angina pectoris; Z79.01 Long term (current) use of anticoagulants; Z79.82 Long term (current) use of aspirin; Z95.1 Presence of aortocoronary bypass graft
CPT/HCPCS: 81001; 87077; 87086; 87186; 99283

== ENCOUNTER 2017-03-14 17:58 | Emergency (ER) | payer MEDICARE ==
[~2017-03-14] VITALS: Ht 182.9 cm; Wt 80.0 kg
[~2017-03-14 17:58] MED LIST changes: +CYAN2500 PO; -CYAN5SUB SL; +FINA5TAB2 PO; -HYDR-3535 PO; -NACL5%O RIGHT EYE; -SODI1SOL8 RIGHT EYE; +TAMS0.4C4 PO; +TRAV0.00 RIGHT EYE
[2017-03-14 18:00] VITALS: BP 209/80; PULSE 90; RESP 18; TEMP 99.4; O2SAT 96
--- NOTE | 2017-03-14 18:15 | PD ---
Physical Exam Time Seen by Provider: 18:15 Narrative 86 y/o male here after having his vu catheter replaced by urologist Dr. Gutierrez today. Initially the catheter was producing urine but now it is not. Vital signs reviewed. Seen at triage desk. Awaiting bed placement. Data Data Last Documented VS Vital Signs Date Time Temp Pulse Resp B/P Pulse Ox O2 Delivery O2 Flow Rate FiO2 03/14/17 18:00 99.4 90 18 209/80 96 Room Air [facility] Medical Record Reviewed: Yes Supervised Visit with DUTCH: Alistair Vaughn Mar 14, 2017 18:15
--- NOTE | 2017-03-14 20:01 | PD ---
HPI Chief Complaint: Complaint Time Seen by Provider: 19:54 Travel History International Travel<30 days: No Contact w/Intl Traveler<30days: No Traveled to known affect area: No History of Present Illness HPI 86-year-old male presents to the emergency department for evaluation of his Vu no longer working. Patient saw Dr. Gutierrez today in his office and his Vu was changed. He states it was draining fine. However, he changed the bag from one leg to the other and it has not drained since. He reports bladder distention. The patient denies any fevers or chills. No other complaints. The patient has had a Vu since he underwent back surgery. Dr. Gutierrez believes it to be possibly due to BPH. PFSH Past Medical History Hx Anticoagulant Therapy: Yes Arthritis: Yes Asthma: No Autoimmune Disease: No Heart Rhythm Problems: No Cancer: No Cardiac Catheterization: Yes Cardiovascular Problems: Yes High Cholesterol: Yes Congestive Heart Failure: No COPD: No Cerebrovascular Accident: No Coronary Artery Disease: Yes Diabetes: Yes Patient Takes Glucophage: Yes (metformin ) Diminished Hearing: Yes Endocrine: Yes Genitourinary: Yes (FREQUENCY) Hepatitis: No Hiatal Hernia: No Hypertension: Yes Immune Disorder: No Kidney Stones: No Musculoskeletal: Yes (OA) Neurologic: Yes (BULGING DISC) Psychiatric: No Respiratory: No Migraines: No Seizures: No Thyroid Disease: No Past Surgical History Abdominal Surgery: No AICD: No Cardiac Surgery: Yes (CABG) Coronary Artery Bypass Graft: Yes (2001 1 VESSEL) Ear Surgery: No Endocrine Surgery: No Eye Surgery: Yes (CATARACTS) Genitourinary Surgery: Yes (has ongoing use of vu catheter) Joint Replacement: No Neurologic Surgery: Yes (laminectomies 09/04/16) Oral Surgery: Yes (TONSILLECTOMY) Pacemaker: No Thoracic Surgery: No Other Surgery: Yes Social History Alcohol Use: Yes (seldom) Tobacco Use: No Substance Use: No Allergies-Medications (Allergen,Severity, Reaction): Coded Allergies: No Known Allergies (Verified , 03/14/17) Reported Meds & Prescriptions Reported Meds & Active Scripts Active Tamsulosin (Tamsulosin HCl) 0.4 Mg Cap 0.4 Mg PO HS Finasteride 5 Mg Tab 5 Mg PO DAILY Do not crush. Reported Travatan Z Opth Drops (Travoprost) 0.004 % Soln 1 Drop RIGHT EYE HS B-12 (Cyanocobalamin) 2,500 Mcg Tab 2,500 Mcg PO DAILY Atenolol 25 Mg Tab 25 Mg PO DAILY Aspirin 81 Mg Chew 81 Mg CHEW DAILY Metformin (Metformin HCl) 500 Mg Tab 1,000 Mg PO BID With meals Atorvastatin (Atorvastatin Calcium) 10 Mg Tab 10 Mg PO DAILY Vitamin D3 (Cholecalciferol) 1,000 Unit Tab 1,000 Units PO DAILY Folic Acid 400 Mcg Tab 400 Mcg PO DAILY Ranitidine (Ranitidine HCl) 150 Mg Cap 150 Mg PO DAILY Flomax (Tamsulosin HCl) 0.4 Mg Cap 0.4 Mg PO DAILY Xanax (Alprazolam) 0.25 Mg Tab 0.25 Mg PO Q8H PRN Review of Systems Except as stated in HPI: all other systems reviewed are Neg Physical Exam Narrative GENERAL: Well-nourished, well-developed elderly male patient, afebrile. SKIN: Focused skin assessment warm/dry. HEAD: Normocephalic. Atraumatic. EYES: No scleral icterus. No injection or drainage. NECK: Supple, trachea midline. No JVD or lymphadenopathy. CARDIOVASCULAR: Regular rate and rhythm without murmurs, gallops, or rubs. RESPIRATORY: Breath sounds equal bilaterally. No accessory muscle use. Lungs sounds are clear to auscultation. GASTROINTESTINAL: Abdomen soft, non-tender, nondistended. Patient has indwelling Vu catheter. No urine in drainage bag. MUSCULOSKELETAL: No cyanosis, or edema. BACK: Nontender without obvious deformity. No CVA tenderness. Data Data Last Documented VS Vital Signs Date Time Temp Pulse Resp B/P Pulse Ox O2 Delivery O2 Flow Rate FiO2 03/14/17 18:00 99.4 90 18 209/80 96 Room Air Orders Urinalysis - C+S If Indicated (03/14/17 19:52) Replace Vu (03/14/17 20:12) MDM Medical Decision Making Medical Screen Exam Complete: Yes Emergency Medical Condition: Yes Medical Record Reviewed: Yes Differential Diagnosis Urinary retention versus dislodgment of Vu catheter versus occluded Vu catheter vs. UTI Narrative Course 78-year-old male presents to the emergency department for evaluation of his Vu catheter no longer draining his urine and bladder distention. He had it replaced today by Dr. Jose E black. The Vu will be attempted to be irrigated. The nurse then deflated the balloon, advanced the catheter and it started draining. UA is ordered and pending. UA is pending. Dr. Gallardo will follow up on UA results. Elise Maxwell Mar 14, 2017 20:00
[2017-03-14 20:40] VITALS: BP 175/74
[2017-03-14 20:46] LABS: BLOOD, URINE MOD (NEG); GLUCOSE,URINE NEG (NEG); KETONE, URINE NEG (NEG); MUCUS URINE FEW /lpf (OCC); NITRITE,URINE NEG (NEG); PH, URINE 6.5 (5.0-8.5); TRANSITIONAL EPI CELLS, URINE 1 /hpf; URINE COLOR YELLOW (YELLW/STRAW)
[2017-03-14 20:47] LABS: COMMENT (UR) CATH-CULTURE IND; CULTURE IF INDICATED CATH CULTURE IND
--- NOTE | 2017-03-14 20:52 | PD ---
Data Data Last Documented VS Vital Signs Date Time Temp Pulse Resp B/P Pulse Ox O2 Delivery O2 Flow Rate FiO2 03/14/17 20:40 175/74 03/14/17 18:00 99.4 90 18 96 Room Air Orders Urinalysis - C+S If Indicated (03/14/17 19:52) Replace Fiore (03/14/17 20:12) Urine Culture (03/14/17 20:15) Labs Laboratory Tests Test 03/14/17 20:15 Urine Color YELLOW Urine Turbidity HAZY Urine pH 6.5 Urine Specific [place] 1.011 Urine Protein 30 mg/dL Urine Glucose (UA) NEG mg/dL Urine Ketones NEG mg/dL Urine Occult Blood MOD Urine Nitrite NEG Urine Bilirubin NEG Urine Urobilinogen LESS THAN 2.0 MG/DL Urine Leukocyte Esterase LARGE Urine RBC 120 /hpf Urine WBC 120 /hpf Urine Transitional Epithelial 1 /hpf Cells Urine Amorphous Sediment RARE Urine Mucus FEW /lpf Microscopic Urinalysis Comment CATH-CULTURE IND MDM Medical Record Reviewed: Yes Supervised Visit with DUTCH: Yes Narrative Course I, Dr. Gallardo, have reviewed the advance practice practitioner's documentation and am in agreement, met with the patient face to face, made the diagnosis, and the medical decision making was done by me. *My assessment and Findings: Urinalysis is equivocal. The patient was seen by Dr Gutierrez today and a UA was done there and no abx indicated. Fiore catheter is draining appropriately. Patient is ready for discharge. Diagnosis Primary Impression: Dislodged Fiore catheter Qualified Code: T83.021D - Dislodged Fiore catheter, subsequent encounter Referrals: Urologist call for appointment Additional Instruction: You have a choice when it comes to health care, and we are glad that you chose [facility]. Hopefully, we have met your expectations on today's visit. You are welcome to return to [facility] at any time, as we are committed to meeting the health care needs of our community. Disposition: 01 DISCHARGE HOME Condition: Stable Bill Gallardo MD Mar 14, 2017 20:52
[2017-03-25] MEDS ORDERED: TRAV0.00 EACH EYE (14:16)
[2017-03-25] MEDS ORDERED: PRED1SUS6 RIGHT EYE (14:40)
[2017-03-25] MEDS ORDERED: MEDR4PAK PO (14:40)
== END 2017-03-14 21:03 | disposition home or self-care (01) ==
LOC: NEPD 17:58
DX: T83.0 Mechanical complication of urinary catheter (principal); M13.88 Other specified arthritis, other site; E78.00 Pure hypercholesterolemia, unspecified; I25.10 Atherosclerotic heart disease of native coronary artery without angina pectoris; E11.9 Type 2 diabetes mellitus without complications; I10 Essential (primary) hypertension; Z79.82 Long term (current) use of aspirin; Z79.899 Other long term (current) drug therapy
CPT/HCPCS: 81001; 87086; 99283

== ENCOUNTER 2017-03-17 18:42 | Emergency (ER) | payer MEDICARE ==
[~2017-03-17] VITALS: Ht 182.9 cm; Wt 79.0 kg
[2017-03-17 18:44] VITALS: BP 195/90; PULSE 72; RESP 24; TEMP 98.5; O2SAT 96
--- NOTE | 2017-03-17 19:08 | PD ---
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 This is being managed by urologist Dr. Gutierrez. He presents today for evaluation of malfunctioning Vu catheter. The patient reports that this afternoon he changed his urinary back from a leg bag to a larger bag to use at night. He reports that since then he hasn't had any sort of urine output. He denies any abdominal pain, suprapubic pressure, flank pain, fevers or chills. The patient was seen here a few days ago and had a urinalysis which was cloudy with pyuria but the culture reassuringly has grown out mixed gram-positive amina. PFSH Past Medical History Hx Anticoagulant Therapy: Yes (asa) Arthritis: Yes Asthma: No Autoimmune Disease: No Heart Rhythm Problems: No Cancer: No Cardiac Catheterization: Yes Cardiovascular Problems: Yes (mi with bypass) High Cholesterol: Yes Congestive Heart Failure: No COPD: No Cerebrovascular Accident: No Coronary Artery Disease: Yes Diabetes: Yes (metformin ) Diminished Hearing: Yes Endocrine: Yes Genitourinary: Yes (FREQUENCY) Hepatitis: No Hiatal Hernia: No Hypertension: Yes Immune Disorder: No Kidney Stones: No Musculoskeletal: Yes (OA) Neurologic: Yes (BULGING DISC) Psychiatric: No Respiratory: No Migraines: No Seizures: No Thyroid Disease: No Past Surgical History Abdominal Surgery: No AICD: No Cardiac Surgery: Yes (CABG) Coronary Artery Bypass Graft: Yes (2001 1 VESSEL) Ear Surgery: No Endocrine Surgery: No Eye Surgery: Yes (CATARACTS) Genitourinary Surgery: Yes (has ongoing use of vu catheter) Joint Replacement: No Neurologic Surgery: Yes (laminectomies 09/04/16) Oral Surgery: Yes (TONSILLECTOMY) Pacemaker: No Thoracic Surgery: No Other Surgery: Yes Social History Alcohol Use: Yes (seldom) Tobacco Use: No Substance Use: No Allergies-Medications (Allergen,Severity, Reaction): Coded Allergies: No Known Allergies (Verified , 03/17/17) Reported Meds & Prescriptions Reported Meds & Active Scripts Active Tamsulosin (Tamsulosin HCl) 0.4 Mg Cap 0.4 Mg PO HS Finasteride 5 Mg Tab 5 Mg PO DAILY Do not crush. Reported Travatan Z Opth Drops (Travoprost) 0.004 % Soln 1 Drop RIGHT EYE HS B-12 (Cyanocobalamin) 2,500 Mcg Tab 2,500 Mcg PO DAILY Atenolol 25 Mg Tab 25 Mg PO DAILY Aspirin 81 Mg Chew 81 Mg CHEW DAILY Metformin (Metformin HCl) 500 Mg Tab 1,000 Mg PO BID With meals Atorvastatin (Atorvastatin Calcium) 10 Mg Tab 10 Mg PO DAILY Vitamin D3 (Cholecalciferol) 1,000 Unit Tab 1,000 Units PO DAILY Folic Acid 400 Mcg Tab 400 Mcg PO DAILY Ranitidine (Ranitidine HCl) 150 Mg Cap 150 Mg PO DAILY Flomax (Tamsulosin HCl) 0.4 Mg Cap 0.4 Mg PO DAILY Xanax (Alprazolam) 0.25 Mg Tab 0.25 Mg PO Q8H PRN Review of Systems Except as stated in HPI: all other systems reviewed are Neg Physical Exam Narrative GENERAL: Well-developed well-nourished male in no acute distress SKIN: Warm and dry. HEAD: Atraumatic. Normocephalic. EYES: Pupils equal and round. No scleral icterus. No injection or drainage. ENT: No nasal bleeding or discharge. Mucous membranes pink and moist. NECK: Trachea midline. No JVD. CARDIOVASCULAR: Regular rate and rhythm. No murmur appreciated. RESPIRATORY: No accessory muscle use. Clear to auscultation. Breath sounds equal bilaterally. GASTROINTESTINAL: Abdomen soft, non-tender, nondistended. Hepatic and splenic margins not palpable. : Vu catheter is in place. There is no erythema or edema of the penile shaft or urethral opening. There is no foul-smelling or purulent drainage. MUSCULOSKELETAL: No obvious deformities. No edema. NEUROLOGICAL: Awake and alert. No obvious cranial nerve deficits. Motor grossly within normal limits. Normal speech. PSYCHIATRIC: Appropriate mood and affect; insight and judgment normal. Data Data Last Documented VS Vital Signs Date Time Temp Pulse Resp B/P Pulse Ox O2 Delivery O2 Flow Rate FiO2 03/17/17 18:44 98.5 72 24 195/90 96 Room Air Orders Urinary Catheter Insert/Apply (03/17/17 19:05) MDM Medical Decision Making Medical Screen Exam Complete: Yes Emergency Medical Condition: Yes Medical Record Reviewed: Yes Differential Diagnosis Clogged Vu catheter versus kinked Vu catheter versus stricture versus UTI Narrative Course 86year-old male presents for evaluation of malfunctioning Vu catheter. The Vu catheter was changed out with no difficulty. The patient is stable for discharge. Diagnosis Primary Impression: Dislodged Vu catheter Qualified Code: T83.021A - Dislodged Vu catheter, initial encounter Additional Instructions: Follow-up with your urologist as scheduled. Return for any emergent medical conditions. Med/Other Pt SpecificInfo: No Change to Meds Disposition: 01 DISCHARGE HOME Condition: Stable Alistair Gardiner Mar 17, 2017 19:08
[2017-03-25] MEDS ORDERED: TRAV0.00 EACH EYE (14:16)
[2017-03-25] MEDS ORDERED: MEDR4PAK PO (14:40)
[2017-03-25] MEDS ORDERED: PRED1SUS6 RIGHT EYE (14:40)
== END 2017-03-17 19:58 | disposition home or self-care (01) ==
LOC: NEPC 18:42
DX: T83.021A Displacement of indwelling urethral catheter, initial encounter (principal)
CPT/HCPCS: 51702

== ENCOUNTER → 2017-07-22 | Day surgery (SDC) | payer MEDICARE ==
[~2017-07-22] VITALS: Ht 182.9 cm; Wt 78.5 kg
[~2017-07-22] MED LIST changes: +ASPI-516 CHEW; -ASPI81CH CHEW; +CEPH-459 PO; +CHLORHEXIDINE GLUCONATE 2 % 1 PACK (2 CLOTHS) TOPICAL PRN; +DEXAMETHASONE SOD PHOS 4 MG/ML VIAL IV ONE; +DO NOT ADM ANY ANTICOAGULANT DRUGS PRN; +ESZO1TAB4 PO; -FOLI400T PO; +GLIP5TAB8 PO; +LACTATED RINGER'S 1000 ML IV PRN; +LIDOCAINE HCL 1% PF 5 ML SYRINGE OTHER ONE; +METOPROLOL TARTRATE 25 MG TAB PO PRN; +MIDAZOLAM HCL 2 MG/2 ML VIAL IV ONE; +ONDANSETRON HCL 4 MG/2 ML VIAL IV PUSH ONE; +ONDANSETRON HCL 4 MG/2 ML VIAL IV PUSH PRN; +PERC5TAB12 PO; +POVIDONE IODINE 5% (ANTISEPSIS KIT) 4 APPLICATIONS EACH NARE PRN; +PRED1SUS6 RIGHT EYE; +PROPOFOL 200 MG/20 ML AMP IV ONE; +SODIUM CHLORID 0.9% 500 ML IV PRN; -TAMS0.4C4 PO; +TRAV0.00 EACH EYE; -TRAV0.00 RIGHT EYE; +ceFAZolin 1,000 MG/NS 100 ML IV SCH; +ePHEDrine/NS 25 MG/5 ML SYR IV ONE; +oxyCODONE/ACETAMINOPHEN 5 MG/325 MG TAB PO PRN
[2017-07-22 09:08] LABS: AUTOMATED NEUTROPHIL # 4.7 TH/MM3 (1.8-7.7); BASOPHIL % 0.3 % (0.0-2.0); EOSINOPHIL # 0.2 TH/MM3 (0-0.4); EOSINOPHIL % 2.7 % (0.0-4.0); HEMATOCRIT 36.7 % (39.0-51.0); HEMO FLAGS DIFF FINAL; LYMPH % 15.2 % (9.0-44.0); LYMPHOCYTE # 0.9 TH/MM3 (1.0-4.8); MEAN CELL VOLUME 84.7 FL (80.0-100.0); MEAN CORPUSCULAR HEMOGLOBIN 29.5 PG (27.0-34.0); MEAN CORPUSCULAR HGB CONC 34.8 % (32.0-36.0); NEUT % 74.8 % (16.0-70.0); PLATELET COUNT 191 TH/MM3 (150-450); RED BLOOD COUNT 4.34 MIL/MM3 (4.50-5.90); RED CELL DISTRIBUTION WIDTH 13.9 % (11.6-17.2); WHITE BLOOD COUNT 6.3 TH/MM3 (4.0-11.0)
--- NOTE | 2017-07-22 13:40 | PD.OP ---
Operative Report Date of Surgery: Jul 22, 2017 Preoperative Diagnosis: (1) BPH (benign prostatic hypertrophy) with urinary obstruction Postoperative Diagnosis: (1) BPH (benign prostatic hypertrophy) with urinary obstruction Procedure: Cystoscopy and transurethral resection of the prostate Anesthesia: General Surgeon: Sarbjit Gutierrez Blanket Binder(s): None Operation and Findings: Indication for procedure: The case of a pleasant 87-year-old gentleman with urinary retention for almost 1 year who recently underwent cystoscopic evaluation that demonstrated obstructing BPH. Patient presents today to undergo cystoscopy and a transurethral resection of the prostate. Patient was informed preoperatively that I could not guarantee that he would be able to void spontaneously after this procedure. Operative procedure in detail: Patient was brought to the operating room suite and placed supine on the cystoscopy table. He was then placed under general anesthesia. He was then repositioned in the dorsolithotomy position and prepped and draped in normal sterile fashion. After appropriate timeout was undertaken I proceeded with cystoscopic evaluation utilizing the rigid cystoscope with a 20 Mauritian sheath and 30 lens. The urethra was patent without stricture formation, the prostatic urethra was markedly obstructed with apposition of the lateral lobes and enlargement to the median lobe. Further passage of cystoscope within the urinary bladder revealed both right and left ureteral orifices to be in correct anatomic position, effluxing clear yellow urine. There were no bladder mucosal lesions, calculi or diverticula formation. There were no areas suspicious for bladder tumor formation. I then exchanged the cystoscope for the resectoscope bipolar loop of 26 Mauritian size and proceeded to perform a transurethral resection of the prostate utilizing normal saline as irrigant. Care was taken to avoid inadvertent resection of tissue in the vicinity of the ureteral orifice these or beyond the verumontanum to preserve the integrity of the external sphincter. Once he obstructing tissue was dissected, the elik evacuator was utilized and the resected tissue was collected and sent off to pathology. The resectoscope was reintroduced and hemostasis was accomplished utilizing coagulation current. Estimated blood loss throughout the procedure was approximately 100 cc. A 20 Mauritian 30 cc Fiore catheter was then placed utilizing a catheter guide and connected to gravity drainage with clear drainage. The patient tolerated the procedures without complications and was transferred to the PACU in satisfactory condition. Sarbjit Gutierrez MD Jul 22, 2017 13:40
[2017-07-22 15:13] VITALS: BP 148/74; PULSE 72; RESP 18; TEMP 96.5; O2SAT 98
--- NOTE | 2017-07-22 19:38 | EKG ---
Date Performed: 07/22/2017 Time Performed: 08:15:20 PTAGE: 87 years EKG: SINUS BRADYCARDIA WITH FIRST DEGREE AV BLOCK Since previous tracing, no significant change noted ABNORMAL ECG PREVIOUS TRACING : 08/29/2016 12.25 DOCTOR: Thomas Beaulieu Interpretating Date/Time 07/22/2017 19:36:11
== END | disposition home or self-care (01) ==
LOC: HSDC 07:34
PROVIDERS: ATTEND Urology
DX: N40.1 Benign prostatic hyperplasia with lower urinary tract symptoms (principal); N13.8 Other obstructive and reflux uropathy; C61 Malignant neoplasm of prostate; R33.9 Retention of urine, unspecified; I25.10 Atherosclerotic heart disease of native coronary artery without angina pectoris; I10 Essential (primary) hypertension; E78.5 Hyperlipidemia, unspecified; K21.9 Gastro-esophageal reflux disease without esophagitis; E11.9 Type 2 diabetes mellitus without complications; Z79.84 Long term (current) use of oral hypoglycemic drugs; Z95.1 Presence of aortocoronary bypass graft; Z01.818 Encounter for other preprocedural examination; Z01.810 Encounter for preprocedural cardiovascular examination
CPT/HCPCS: 00914; 52601; 85025; 93005; G0416; J0690; J7120; J1100; J2250; J2405; J3010

== ENCOUNTER 2017-08-01 18:40 | Emergency (ER) | payer MEDICARE ==
[~2017-08-01 18:40] MED LIST changes: -CHLORHEXIDINE GLUCONATE 2 % 1 PACK (2 CLOTHS) TOPICAL PRN; -DEXAMETHASONE SOD PHOS 4 MG/ML VIAL IV ONE; -DO NOT ADM ANY ANTICOAGULANT DRUGS PRN; -LACTATED RINGER'S 1000 ML IV PRN; -LIDOCAINE HCL 1% PF 5 ML SYRINGE OTHER ONE; -METOPROLOL TARTRATE 25 MG TAB PO PRN; -MIDAZOLAM HCL 2 MG/2 ML VIAL IV ONE; -ONDANSETRON HCL 4 MG/2 ML VIAL IV PUSH ONE; -ONDANSETRON HCL 4 MG/2 ML VIAL IV PUSH PRN; -POVIDONE IODINE 5% (ANTISEPSIS KIT) 4 APPLICATIONS EACH NARE PRN; -PROPOFOL 200 MG/20 ML AMP IV ONE; -SODIUM CHLORID 0.9% 500 ML IV PRN; -ceFAZolin 1,000 MG/NS 100 ML IV SCH; -ePHEDrine/NS 25 MG/5 ML SYR IV ONE; -oxyCODONE/ACETAMINOPHEN 5 MG/325 MG TAB PO PRN
[2017-08-01 18:44] VITALS: BP 199/93; PULSE 83; RESP 18; TEMP 97.6; O2SAT 99
--- NOTE | 2017-08-01 19:17 | PD ---
HPI Chief Complaint: Complaint Time Seen by Provider: 19:00 Travel History International Travel<30 days: No Contact w/Intl Traveler<30days: No Traveled to known affect area: No History of Present Illness HPI This is an 87-year-old male with history of urinary retention for the past several months. He follows with urologist Dr. Gutierrez. He has had an indwelling Vu catheter for the past several months. Today the Vu catheter was removed as a voiding trial. He reports that he has not been able to urinate since this morning. He is feeling pressure in the lower abdomen, constant, worse with inability to urinate. He is requesting Vu catheter replacement. He has no other complaints at this time. PFSH Past Medical History Hx Anticoagulant Therapy: Yes (asa) Arthritis: Yes Asthma: No Autoimmune Disease: No Heart Rhythm Problems: No Cancer: No Cardiac Catheterization: Yes Cardiovascular Problems: Yes (mi with bypass) High Cholesterol: Yes Congestive Heart Failure: No COPD: No Cerebrovascular Accident: No Coronary Artery Disease: Yes Diabetes: Yes (metformin ) Diminished Hearing: Yes Endocrine: Yes Genitourinary: Yes (FREQUENCY) Hepatitis: No Hiatal Hernia: No Hypertension: Yes Immune Disorder: No Kidney Stones: No Musculoskeletal: Yes (OA) Neurologic: Yes (BULGING DISC) Psychiatric: No Reproductive: No Respiratory: No Migraines: No Seizures: No Thyroid Disease: No Past Surgical History Abdominal Surgery: No AICD: No Body Medical Devices: STERNAL WIRES Cardiac Surgery: Yes (CABG) Coronary Artery Bypass Graft: Yes (2001 1 VESSEL) Ear Surgery: No Endocrine Surgery: No Eye Surgery: Yes (CATARACTS) Genitourinary Surgery: Yes (has ongoing use of vu catheter) Joint Replacement: No Neurologic Surgery: Yes (laminectomies 09/04/16) Oral Surgery: Yes (TONSILLECTOMY) Pacemaker: No Thoracic Surgery: No Other Surgery: Yes Social History Alcohol Use: Yes (seldom) Tobacco Use: No Substance Use: No Allergies-Medications (Allergen,Severity, Reaction): Coded Allergies: No Known Allergies (Verified Allergy, Unknown, 08/01/17) Reported Meds & Prescriptions Reported Meds & Active Scripts Active Percocet (Oxycodone-Acetaminophen) 5-325 mg Tab 1-2 Tab PO Q6H PRN Prednisolone Acetate Opth 1% Susp 1 Drop RIGHT EYE QID Finasteride 5 Mg Tab 5 Mg PO DAILY Do not crush. Reported Glipizide 5 Mg Tab 5 Mg PO BIDAC Take 30 minutes before a meal Eszopiclone 3 Mg Tab 3 Mg PO HS PRN Travatan Z Opth Drops (Travoprost) 0.004 % Soln 1 Drop EACH EYE HS B-12 (Cyanocobalamin) 2,500 Mcg Tab 1,000 Mcg PO DAILY Atenolol 25 Mg Tab 50 Mg PO DAILY Aspirin 81 Mg Chew 81 Mg CHEW DAILY Metformin (Metformin HCl) 500 Mg Tab 1,000 Mg PO BID With meals Atorvastatin (Atorvastatin Calcium) 10 Mg Tab 10 Mg PO DAILY Vitamin D3 (Cholecalciferol) 1,000 Unit Tab 1,000 Units PO DAILY Ranitidine (Ranitidine HCl) 150 Mg Cap 150 Mg PO DAILY Flomax (Tamsulosin HCl) 0.4 Mg Cap 0.4 Mg PO DAILY Xanax (Alprazolam) 0.25 Mg Tab 0.25 Mg PO Q8H PRN Review of Systems Except as stated in HPI: all other systems reviewed are Neg Physical Exam Narrative GENERAL: Well-developed well-nourished male who appears uncomfortable on initial examination. SKIN: Warm and dry. HEAD: Atraumatic. Normocephalic. EYES: Pupils equal and round. No scleral icterus. No injection or drainage. ENT: No nasal bleeding or discharge. Mucous membranes pink and moist. NECK: Trachea midline. No JVD. CARDIOVASCULAR: Regular rate and rhythm. No murmur appreciated. RESPIRATORY: No accessory muscle use. Clear to auscultation. Breath sounds equal bilaterally. GASTROINTESTINAL: Abdomen soft, suprapubic distention noted with some tenderness to palpation over the suprapubic region. No guarding. examination is unremarkable. MUSCULOSKELETAL: No obvious deformities. No edema. NEUROLOGICAL: Awake and alert. No obvious cranial nerve deficits. Motor grossly within normal limits. Normal speech. Data Data Last Documented VS Vital Signs Date Time Temp Pulse Resp B/P (MAP) Pulse Ox O2 Delivery O2 Flow Rate FiO2 08/01/17 18:44 97.6 83 18 199/93 (128) 99 Room Air Orders Orders Bladder Scan PRN (08/01/17 18:54) Urinary Catheter Insert/Apply (08/01/17 19:08) Ed Discharge Order (08/01/17 19:24) MDM Medical Decision Making Medical Screen Exam Complete: Yes Emergency Medical Condition: Yes Medical Record Reviewed: Yes Differential Diagnosis Urinary retention, renal failure, BPH, neurogenic bladder Narrative Course 87-year-old male with urinary retention presents with inability to urinate after having his Vu catheter removed yesterday. The Vu catheter was replaced and 900 mL of urine was obtained. The patient will be discharged, he plans on following up with Dr. Gutierrez. Diagnosis Primary Impression: Urinary retention Referrals: Sarbjit Gutierrez MD Additional Instructions: Follow-up with urologist. Return for any emergent medical conditions. Med/Other Pt SpecificInfo: No Change to Meds Disposition: 01 DISCHARGE HOME Condition: Stable Alistair Gardiner Aug 01, 2017 19:17
[2017-08-09] MEDS ORDERED: CIPR250T52 PO (10:31)
== END 2017-08-01 20:04 | disposition home or self-care (01) ==
LOC: NEPD 18:40
DX: R33.9 Retention of urine, unspecified (principal); E11.9 Type 2 diabetes mellitus without complications; E78.00 Pure hypercholesterolemia, unspecified; Z79.84 Long term (current) use of oral hypoglycemic drugs
CPT/HCPCS: 99284